=== PATIENT | male | born 1965 ===

== ENCOUNTER 2020-08-25 13:53 | Outpatient (REF) | payer OTHER, SELFPAY ==
[2020-08-25 15:58] LABS: Prostate Specific Antigen Scr 0.31 ng/mL (<0.05-4.0)
== END 2020-08-25 13:54 | disposition home or self-care (01) ==
LOC: HO.LAB 13:53
PROVIDERS: PCP Physician Assistant; Visit Provider Physician Assistant
DX: Z12.5 Encounter for screening for malignant neoplasm of prostate (principal)
CPT/HCPCS: 36415; 84153

== ENCOUNTER → 2020-09-04 14:14 | Outpatient (BNVA) | payer OTHER, SELFPAY | PROVIDERS: PCP Physician Assistant; Visit Provider Urology | DX: R31.9 Hematuria, unspecified (principal) | CPT/HCPCS: 81002; 99202 ==

== ENCOUNTER 2020-09-09 11:46 | Outpatient (REF) | payer OTHER, SELFPAY ==
[2020-09-09 12:30] LABS: Urine Cytology See Pathology rpt
[2020-09-09 13:08] LABS: Blood Urea Nitrogen 17 mg/dL (9-16); Estimated Glomerular Filt Rate > 60
== END 2020-09-09 11:47 | disposition home or self-care (01) ==
LOC: HO.LAB 11:46
PROVIDERS: PCP Urology; Visit Provider Physician Assistant
DX: R31.9 Hematuria, unspecified (principal); N26.1 Atrophy of kidney (terminal)
CPT/HCPCS: 36415; 82565; 84520; 88112

== ENCOUNTER 2020-09-17 09:50 | Outpatient (REF) | payer OTHER, SELFPAY ==
--- NOTE | ~2020-09-17 | CT_ITS ---
EXAMINATION: CT ABDOMEN AND PELVIS WITHOUT AND WITH CONTRAST CLINICAL INFORMATION: Gross hematuria COMPARISON: Ultrasound abdomen 04/19/2018 TECHNIQUE: Noncontrast CT of the abdomen and pelvis is performed followed by split bolus contrast-enhanced images using 85 mL Omnipaque 350 contrast.? Postcontrast imaging is performed during the combined nephrogram and excretion phase. Sagittal and coronal reformatted images were obtained on the technologist's workstation for both the precontrast and postcontrast phases. This CT examination was performed using dose optimization techniques as appropriate, variously including the following: *Automated exposure control *Adjustment of mA and/or kV according to patient size (this includes techniques or standardized protocols for targeted exams where dose is matched to indication/reason for exam; i.e. extremities or head) *Use of iterative reconstruction technique DLP: 571 mGy-cm FINDINGS: LUNG BASES: The lung bases are clear. The heart size is normal. LIVER, GALLBLADDER, AND BILIARY TREE: The liver is normal in size, shape, and attenuation. No focal hepatic lesion or biliary ductal dilatation is present. The gallbladder is unremarkable with no evidence of radiopaque gallstones, gallbladder wall thickening, or obvious pericholecystic inflammatory changes. PANCREAS: Unremarkable. SPLEEN: Unremarkable. ADRENAL GLANDS: Unremarkable. KIDNEYS AND URETERS: There is a 3 mm nonobstructive radiopaque calculi, upper pole calyx, left kidney. Postcontrast both kidneys nephrograms are symmetrical in size, shape and position. There is normal cortical thickness. No enhancing renal mass, cyst, or mass effect seen. There is good opacification of bilateral kidney pelvises and ureters without any intraluminal filling defect or narrowing. The left kidney measures 9.5 cm in length and right kidney measures 9.1 cm in length. There is no perinephric stranding. BLADDER: The bladder is partially opacified with excreted contrast and appears unremarkable. GASTROINTESTINAL TRACT: There is scattered stool and gas seen throughout the colon without any significant distention. The small bowel loops are normal caliber. The appendix is normal caliber. ABDOMINAL WALL: No significant hernia is appreciated. LYMPH NODES: Normal. VASCULAR: Unremarkable. PELVIC VISCERA: Unremarkable. OSSEUS STRUCTURES: No lytic or sclerotic process. CT/CT urogram IMPRESSION: 1. Nonobstructive radiopaque calculi, upper pole left kidney. No caliectasis or hydronephrosis seen. 2. Moderate constipation. No obstruction seen.
[2020-09-17] MEDS: iohexoL 350 MG/ML 100 ML INFUS..BTL 85 ML IV (10:32)
== END 2020-09-17 09:51 | disposition home or self-care (01) ==
LOC: HO.CT 09:50
PROVIDERS: PCP Physician Assistant; Visit Provider Urology
DX: R31.0 Gross hematuria (principal); R31.9 Hematuria, unspecified
CPT/HCPCS: 74178; Q9967

== ENCOUNTER → 2020-10-01 09:27 | Outpatient (BNVA) | payer OTHER, SELFPAY | PROVIDERS: PCP Physician Assistant; Visit Provider Urology ==

== ENCOUNTER 2021-03-19 12:48 | Outpatient (REF) | payer OTHER, SELFPAY ==
[2021-03-19 14:08] LABS: Hematocrit 41.6 % (42-52); Hemoglobin 13.2 g/dl (14.0-18.0); Mean Corpuscular HGB Conc 31.7 g/dl (31.0-36.0); Mean Corpuscular Hemoglobin 28.6 pg (27.0-33.0); Mean Corpuscular Volume 90.2 fL (80-98); Mean Platelet Volume 8.8 fL (9.4-12.4); Platelet Count 244 X10*3/uL (160-400); Red Blood Count 4.61 X10*6/uL (4.60-5.80); Red Cell Distribution Width 13.4 % (11.0-16.0); White Blood Count 7.5 X10*3/uL (4.8-10.8)
[2021-03-19 14:24] LABS: Alanine Aminotransferase 8 U/L (0-40); Albumin Level 4.1 g/dL (3.5-5.0); Alkaline Phosphatase 67 U/L (39-117); Anion Gap 10 (12-20); Aspartate Amino Transferase 14 U/L (5-37); Bilirubin Total 0.2 mg/dL (0.0-1.0); Blood Urea Nitrogen 14 mg/dL (9-16); Calcium 9.2 mg/dL (8.4-10.2); Carbon Dioxide 32 mmol/L (22-29); Chloride 105 mmol/L (96-108); Estimated Glomerular Filt Rate > 60; Glucose Random 70 mg/dL (60-115); Potassium 4.4 mmol/L (3.3-5.1); Sodium 143 mmol/L (135-145); Total Protein 6.9 g/dL (6.5-8.0)
== END 2021-03-19 12:49 | disposition home or self-care (01) ==
LOC: HO.LAB 12:48
PROVIDERS: PCP Physician Assistant; Referring Provider Physician Assistant; Visit Provider Nurse Practitioner Family
DX: K21.9 Gastro-esophageal reflux disease without esophagitis (principal); K59.00 Constipation, unspecified
CPT/HCPCS: 36415; 80053; 85027; 99202

== ENCOUNTER 2021-03-22 13:43 | Outpatient (REF) | payer OTHER, SELFPAY | END 2021-03-22 13:44 | disposition home or self-care (01) | LOC: HO.LNP 13:43 | PROVIDERS: Visit Provider Nurse Practitioner Family | DX: K21.9 Gastro-esophageal reflux disease without esophagitis (principal) | CPT/HCPCS: 87338 ==

== ENCOUNTER 2021-08-04 11:16 | Outpatient (REF) | payer OTHER, SELFPAY ==
--- NOTE | ~2021-08-04 | XR_ITS ---
EXAMINATION: XR SHOULDER, RIGHT CLINICAL INFORMATION: Pain COMPARISON: None TECHNIQUE: AP external rotation, Grashey, scapular Y, and axillary views of the right shoulder. FINDINGS: Laterally downsloping acromion with a broad-based enthesophyte predisposing to subacromial impingement. Mild degenerative changes of the glenohumeral joint. Mild hypertrophic spurring about the greater tuberosity. No soft tissue calcifications. No acute deformity. No focal bony lesion otherwise. XR/XR shoulder RT min 2V IMPRESSION: Degenerative changes as above predisposing to subacromial impingement.
--- NOTE | ~2021-08-04 | XR_ITS ---
EXAMINATION: XR CERVICAL SPINE CLINICAL INFORMATION: Pain, numbness and tingling COMPARISON: Previous cervical spine x-ray April 2020 TECHNIQUE: 5 views of the cervical spine were obtained. FINDINGS: Bone alignment is normal. No fracture or dislocation is seen. There is degenerative spondylosis and degenerative disc disease at C5-C6. There is right-sided neuroforaminal narrowing at C3-C4 and C5-C6. There is left-sided neuroforaminal narrowing at C6-C7. Prevertebral soft tissues are normal. There is soft tissue calcification or ossification posterior to the C5 spinous process suggestive soft tissue trauma. XR/XR cervical spine 4V IMPRESSION: Degenerative changes.
[2021-08-04 12:10] LABS: Estimated Average Glucose 105 mg/dL; Hemoglobin A1c % 5.3 %
[2021-08-04 12:30] LABS: Alanine Aminotransferase 14 U/L (0-40); Albumin Level 4.1 g/dL (3.5-5.0); Alkaline Phosphatase 67 U/L (39-117); Anion Gap 12 (12-20); Aspartate Amino Transferase 18 U/L (5-37); Bilirubin Total 0.4 mg/dL (0.0-1.0); Blood Urea Nitrogen 14 mg/dL (9-16); Calcium 9.6 mg/dL (8.4-10.2); Carbon Dioxide 29 mmol/L (22-29); Chloride 106 mmol/L (96-108); Cholesterol 176 mg/dL; Estimated Glomerular Filt Rate > 60; Glucose Fasting 92 mg/dL (60-99); HDL Cholesterol 37 mg/dL; LDL Cholesterol Calculated 100 mg/dl; Potassium 4.5 mmol/L (3.3-5.1); Sodium 142 mmol/L (135-145); Total Protein 7.2 g/dL (6.5-8.0); Triglycerides 195 mg/dL
[2021-08-04 12:53] LABS: Prostate Specific Antigen Scr 0.51 ng/mL (<0.05-4.0)
== END 2021-08-04 11:17 | disposition home or self-care (01) ==
LOC: HO.XRAY 11:16
PROVIDERS: PCP Physician Assistant; Visit Provider Physician Assistant
DX: M25.511 Pain in right shoulder (principal); M48.02 Spinal stenosis, cervical region; M47.22 Other spondylosis with radiculopathy, cervical region; M75.41 Impingement syndrome of right shoulder; Z13.1 Encounter for screening for diabetes mellitus; Z13.220 Encounter for screening for lipoid disorders; Z12.5 Encounter for screening for malignant neoplasm of prostate
CPT/HCPCS: 36415; 72050; 73030; 80053; 80061; 83036; 84153

== ENCOUNTER 2021-10-20 14:20 | Outpatient (REF) | payer OTHER, SELFPAY ==
--- NOTE | ~2021-10-20 | XR_ITS ---
EXAMINATION: XR lumbar spine 2-3V CLINICAL INFORMATION: Reason for Exam M54.50 - Low back pain, unspecified COMPARISON: Lumbar spine radiographs 06/04/2019 TECHNIQUE: 3 views of the lumbar spine XR/XR lumbar spine 2-3V FINDINGS/IMPRESSION: 5 nonrib-bearing lumbar-type vertebral bodies. Vertebral body heights are maintained. Grade 1 anterolisthesis of L3 on L4. Mild multilevel degenerative disc disease worst at L3-L4 where there is loss of disc space height and endplate sclerosis. Paravertebral soft tissues are unremarkable.
== END 2021-10-20 14:21 | disposition home or self-care (01) ==
LOC: HO.XRAY 14:20
PROVIDERS: PCP Physician Assistant; Visit Provider Nurse Practitioner Family
DX: M54.50 Low back pain, unspecified (principal)
CPT/HCPCS: 72100

== ENCOUNTER 2022-03-03 08:02 | Outpatient (REF) | payer OTHER, SELFPAY ==
[2022-03-03 09:25] LABS: Alanine Aminotransferase 11 U/L (0-40); Albumin Level 4.1 g/dL (3.5-5.0); Alkaline Phosphatase 64 U/L (39-117); Anion Gap 11 (12-20); Aspartate Amino Transferase 15 U/L (5-37); Bilirubin Total 0.4 mg/dL (0.0-1.0); Blood Urea Nitrogen 11 mg/dL (9-16); Calcium 8.9 mg/dL (8.4-10.2); Carbon Dioxide 29 mmol/L (22-29); Chloride 106 mmol/L (96-108); Cholesterol 159 mg/dL; Estimated Glomerular Filt Rate > 60; Glucose Fasting 93 mg/dL (60-99); HDL Cholesterol 40 mg/dL; LDL Cholesterol Calculated 100 mg/dl; Potassium 3.7 mmol/L (3.3-5.1); Sodium 142 mmol/L (135-145); Total Protein 6.9 g/dL (6.5-8.0); Triglycerides 97 mg/dL
== END 2022-03-03 08:03 | disposition home or self-care (01) ==
LOC: HO.LAB 08:02
PROVIDERS: PCP Physician Assistant; Visit Provider Internal Medicine
DX: R00.2 Palpitations (principal); I10 Essential (primary) hypertension
CPT/HCPCS: 36415; 80053; 80061; 84443

== ENCOUNTER → 2022-03-16 12:51 | Outpatient (REF) | payer OTHER, SELFPAY ==
--- NOTE | 2022-03-16 12:55 | ECG_ITS ---
Hook-up date: 2022-03-16 12:06:00 Duration: 23:39:00 Test Indications: PALPITATIONS Medications: 76636 QRS complexes * Ventricular ectopics which represent % of total QRS comp. 2 Supraventricular ectopics which represent <1 % of total QRS comp. * Paced QRS complexs which represent % of total QRS comp. VENTRICULAR ECTOPY * Isolated * Bigeminal Cycles * Couplets * Runs * Beats in Runs * Beats LONGEST at * BPM at :: -- * Beats FASTEST at * BPM at :: -- SUPRAVENTRICULAR ECTOPY 2 Isolated 0 Couplets 0 Runs 0 Beats in Runs * Beats LONGEST at * BPM at :: -- * Beats FASTEST at * BPM at :: -- HEART RATES 43 MIN at 05:16:39 2022-03-17 66 AVG 114 MAX at 11:41:14 2022-03-17 LONGEST RR 1.4240 secs at 05:16:35 2022-03-17 S-T LEVELS Channel 1 - 128 mm at 12:06:00 2022-03-16 - 128 mm at 12:06:00 2022-03-16 Channel 2 - 128 mm at 12:06:00 2022-03-16 - 128 mm at 12:06:00 2022-03-16 Channel 3 - 128 mm at 03:12:51 -- - 128 mm at 03:12:51 Underlying rhythm is sinus; Average ventricular rate 66/min; range 43-114/min; No significant ectopy, tachy or don arrhythmias; Patient did not report any symptoms in the diary Referred By: Augusta Mahajna Overread By: ADELINA FERRARA
== END ==
LOC: HO.CARD 12:51
PROVIDERS: PCP Physician Assistant; Visit Provider Internal Medicine
DX: R00.2 Palpitations (principal)
CPT/HCPCS: 93225; 93226

== ENCOUNTER 2022-08-10 09:35 | Outpatient (REF) | payer OTHER, SELFPAY ==
[2022-08-10 10:12] LABS: Hematocrit 41.4 % (42.0-52.0); Hemoglobin 13.3 g/dl (14.0-18.0); Mean Corpuscular HGB Conc 32.1 g/dl (31.0-36.0); Mean Corpuscular Hemoglobin 28.8 pg (27.0-33.0); Mean Corpuscular Volume 89.6 fL (80.0-98.0); Mean Platelet Volume 8.9 fL (9.4-12.4); Platelet Count 224 X10*3/uL (160-400); Red Blood Count 4.62 X10*6/uL (4.60-5.80); Red Cell Distribution Width 13.1 % (11.0-16.0); White Blood Count 8.1 X10*3/uL (4.8-10.8)
[2022-08-10 10:58] LABS: Alanine Aminotransferase 9 U/L (0-40); Albumin Level 4.2 g/dL (3.5-5.0); Alkaline Phosphatase 61 U/L (39-117); Anion Gap 11 (12-20); Aspartate Amino Transferase 14 U/L (5-37); Bilirubin Total 0.4 mg/dL (0.0-1.0); Blood Urea Nitrogen 17 mg/dL (9-16); Calcium 9.3 mg/dL (8.4-10.2); Carbon Dioxide 31 mmol/L (22-29); Chloride 106 mmol/L (96-108); Cholesterol 158 mg/dL; Estimated Glomerular Filt Rate > 60; Glucose Fasting 97 mg/dL (60-99); HDL Cholesterol 45 mg/dL; LDL Cholesterol Calculated 94 mg/dl; Sodium 144 mmol/L (135-145); TSH reflex Free T4 0.54 uIU/mL (0.32-4.0); Total Protein 6.9 g/dL (6.5-8.0); Triglycerides 95 mg/dL
[2022-08-10 11:29] LABS: Creatinine Urine 113.11 mg/dL; Microalbum/Creatinine Ratio Ur 9.7 ug/mg cr
== END 2022-08-10 09:36 | disposition home or self-care (01) ==
LOC: HO.LAB 09:35
PROVIDERS: PCP Physician Assistant; Visit Provider Physician Assistant
DX: I10 Essential (primary) hypertension (principal)
CPT/HCPCS: 36415; 80053; 80061; 82043; 84443; 85027

== ENCOUNTER 2023-04-06 14:32 | Outpatient (AMB) | payer OTHER, SELFPAY ==
--- NOTE | 2023-04-06 14:52 | MHC.PC.OV ---
Vital Signs 04/06/23 14:54 Height 5 ft 3 in Weight 125 lb 2 oz BMI 22.2 BP 130/68 Blood Pressure Location Lt brachial Position Sitting Pulse 62 Pulse Source Pulse Oximeter Pulse Oximetry (%) 96 Oxygen Delivery Method Room Air Intake Visit Reasons: left leg swelling Intake Note: Patient is here today for Bilateral swelling of leg, state left leg is worse. Requesting for MRI of the leg and back due to history of sciatica. Mri Ct Tech Required: No Direct Care Worker: Not Required per policy Accompanied by: Self / Same As Patient Allergies sertraline Adverse Reaction (Intermediate, Verified 04/06/23 15:50) inadequate response Medication List - Last Reconciled 04/06/23 by Josh Ayoub MD blood pressure monitor (Blood Pressure Kit) As directed buspirone 5 mg PO BID 90 days diclofenac sodium 1% (Arthritis Pain (diclofenac)) 2 grams topical QID PRN gabapentin 300 mg PO TID 90 days lisinopril-hydrochlorothiazide 20-12.5 mg 1 tab PO DAILY methadone 100 mg PO DAILY methocarbamol 1,000 mg (2 x 500 mg) PO Q8H Tobacco use date assessed: 04/06/23 Dental Screening Dental Screen Date: 04/06/23 Did you have a dental visit in the last 12 months?: Yes Did you have a dental problem in the last 6 months where you did not have access to dental care?: No Was dental information given to patient?: Patient has dentist HPI left leg swelling HPI Details 57-year-old male presents to the office for an urgent visit. I am covering for his provider. Patient reports he has been having pain in the left hip for the past few months. He was seen at by [facility] and had an MRI done. They are now requesting an MRI with contrast. Patient is here requesting an MRI with contrast. [facility] Medical History Anxiety Epidermal cyst of neck Primary insomnia Uncomplicated opioid dependence Surgical History History of removal of cyst Family History Father Prostate cancer Stroke Mother Alzheimers disease Mental health disorder Sister Dementia in Alzheimer's disease Mental health disorder Sister Breast cancer Social History Housing: Apartment Alcohol intake: current Alcohol intake frequency: holidays/special occasions only Patient Tobacco Use Status: Current everyday Tobacco user Tobacco use type: Cigarette Cigarette Packs Per Day: 0.5 Cigarettes Per Day: 10 e-Cigarette/Vaping Use: Never Used Second Hand Smoke Exposure: Yes Substance Use Type: Marijuana service: No Current occupational status: unemployed Cognitive needs: No Hearing needs: No Vision needs: Yes Questionnaire Thrive Questionnaire Date Thrive assessed: 02/17/23 ARACELIS-7 AMB Questionnaire ARACELIS-7 Date ARACELIS - 7 assessed: 02/17/23 Source: Developed by Drs. Inocencio Victor, Itzel Burden, Say Sung and colleagues, with an educational zhane from [employer]. Physical exam (Primary Care) Vital Signs: Last Vital Signs Pulse 62 04/06/23 14:54 BP 130/68 04/06/23 14:54 Pulse Ox 96 04/06/23 14:54 Oxygen Delivery Method Room Air 04/06/23 14:54 BMI result Body Mass Index 22.2 Tobacco/Smoking Status: Tobacco use Status Tobacco use date assessed 04/06/23 04/06/23 14:54 Patient Tobacco Use Status Current everyday Tobacco 04/06/23 15:02 Tobacco use type Cigarette 04/06/23 14:54 e-Cigarette/Vaping Use Never Used 04/06/23 14:54 Thrive Assessment: Date of Thrive Assessment Date Thrive assessed 02/17/23 04/06/23 14:54 Back/Spine/Pelvis Other: Back: No spinal tenderness. Straight leg raising on the right side elicits minimal discomfort in the lower back. Assessment and Plan Assessment & Plan (1) Sciatica: Code(s): M54.30 - Sciatica, unspecified side Plan: I am not understanding the reason for a repeat MRI. The previous MRI was reviewed which showed degenerative joint disease. I have asked for the office note from [facility] and will then review the record again. Coding Level of Care Code Est Pt Level 3 (34552) Diagnoses Sciatica M54.30
[2023-04-06 14:54] VITALS: BP 130/68; PULSE 62; O2SAT 96; BMI 22.2
== END 2023-04-06 16:10 | disposition home or self-care (01) ==
PROVIDERS: PCP Physician Assistant; Visit Provider Internal Medicine
DX: M54.30 Sciatica, unspecified side (principal)
CPT/HCPCS: 99213

== ENCOUNTER 2023-08-02 13:08 | Outpatient (AMB) | payer OTHER, SELFPAY ==
--- NOTE | 2023-08-02 13:15 | MHC.PC.OV ---
Vital Signs 08/02/23 13:16 Height 5 ft 3 in Weight 124 lb 4 oz BMI 22.0 BP 118/68 Blood Pressure Location Lt brachial Position Sitting Respiration 17 Pulse 70 Pulse Source Pulse Oximeter Pulse Oximetry (%) 97 Oxygen Delivery Method Room Air Intake Visit Reasons: PE Intake Note: Patient is here today for a physical. Battery Recharger Required: No Accompanied by: Self / Same As Patient Allergies sertraline Adverse Reaction (Intermediate, Verified 08/02/23 13:31) inadequate response Medication List - Last Reconciled 08/02/23 by Daniel Pulido PA-C blood pressure monitor (Blood Pressure Kit) As directed diclofenac sodium 1% (Arthritis Pain (diclofenac)) 2 grams topical QID PRN gabapentin 300 mg PO TID 90 days lisinopril-hydrochlorothiazide 20-12.5 mg 1 tab PO DAILY methadone 100 mg PO DAILY methocarbamol 1,000 mg (2 x 500 mg) PO Q8H Tobacco use date assessed: 04/06/23 Dental Screening Dental Screen Date: 08/02/23 Did you have a dental visit in the last 12 months?: Yes Did you have a dental problem in the last 6 months where you did not have access to dental care?: No Was dental information given to patient?: Patient has dentist HPI PE HPI Details Patient is a 57-year-old male here today for annual physical. ?has a past medical history significant for generalized anxiety disorder, hep C, opiate dependence,? chronic lumbar spine pain. ? .. Hypertension: Blood pressure acceptable today in office.. Continues on lisinopril 20 mg daily. Hydrochlorothiazide has been added to his blood pressure medication regime. Reports home blood pressures are stable. He otherwise denies any chest discomfort, headaches or vision issues. . Tobacco dependency: Continues to smoke half pack of cigarettes per day. Not interested in quitting at this time. .. opiate dependence: Continues on methadone through a local methadone clinic. currently on 100mg. He does report labs in from time to time depending his mental health. Lumbar disc disease: Continues with the use gabapentin and methocarbamol. Did see is it training specialist in the past to which he was getting therapy with 10s units. He reports his back pain is fine now and will consider pain management in the future. ? . ? Anxiety: He reports anxiety has been much better controlled since he has reduced his marijuana intake. .. Colorectal cancer screening: Has done Cologuard in 2022 which was negative repeat 3 years Vaccines: Up-to-date with COVID vaccine, pneumonia vaccine, tetanus vaccine, Considering his flu vaccine though declines today [facility] Medical History Primary insomnia Uncomplicated opioid dependence Anxiety Epidermal cyst of neck Surgical History History of removal of cyst Family History Father Prostate cancer Stroke Mother Alzheimers disease Mental health disorder Sister Dementia in Alzheimer's disease Mental health disorder Sister Breast cancer Social History (Updated 08/02/23 @ 13:39 by Daniel Pulido PA-C) Housing: Apartment Alcohol intake: current Alcohol intake frequency: holidays/special occasions only Patient Tobacco Use Status: Current everyday Tobacco user Tobacco use type: Cigarette Cigarette Packs Per Day: 0.5 Cigarettes Per Day: 10 e-Cigarette/Vaping Use: Never Used Second Hand Smoke Exposure: Yes Substance Use Type: Marijuana service: No Current occupational status: unemployed Cognitive needs: No Hearing needs: No Vision needs: Yes Questionnaire Thrive Questionnaire Date Thrive assessed: 02/17/23 ARACELIS-7 AMB Questionnaire ARACELIS-7 Date ARACELIS - 7 assessed: 02/17/23 Source: Developed by Drs. Inocencio Victor, Itzel Burden, Say Sung and colleagues, with an educational zhane from [employer]. Review of Systems Const Denies body aches, Denies chills, Denies excessive sweating, Denies fatigue, Denies fever(s) and Denies headache(s) Eyes Denies blurry vision ENT Denies dysphagia, Denies vertigo, Denies dizziness, Denies headache(s), Denies hearing loss and Denies tinnitus Card Denies chest pain, Denies chest pain with activity, Denies syncope, Denies irregular heart rhythm and Denies dyspnea Resp Denies chest congestion, Denies cough, Denies hemoptysis, Denies dyspnea and Denies wheezing GI Denies abdominal pain, Denies melena, Denies hematochezia, Denies coffee ground emesis, Denies dysphagia, Denies diarrhea, Denies nausea and Denies vomiting Denies difficulty urinating, Denies dysuria, Denies urinary frequency, Denies urinary hesitancy and Denies urinary urgency Musc Denies arthralgias, Denies limited range of motion, Denies muscle cramps and Denies muscle weakness Skin/Breast Denies rash and Denies skin ulcer Neuro Denies Abnormal speech present, Denies confusion, Denies vertigo, Denies dizziness, Denies syncope, Denies headache(s), Denies memory loss and Denies seizure-like activity Psych Denies anxiety, Denies confusion, Denies depression, Denies memory loss, Denies panic attacks and Denies paranoia Endo Denies excessive sweating, Denies fatigue, Denies flushing, Denies polydipsia and Denies polyuria Aller/Immun Denies wheezing Physical exam (Primary Care) Vital Signs: Last Vital Signs Pulse 70 08/02/23 13:16 Resp 17 08/02/23 13:16 BP 118/68 08/02/23 13:16 Pulse Ox 97 08/02/23 13:16 Oxygen Delivery Method Room Air 08/02/23 13:16 BMI result Body Mass Index 22.0 Tobacco/Smoking Status: Tobacco use Status Tobacco use date assessed 04/06/23 08/02/23 13:16 Patient Tobacco Use Status Current everyday Tobacco 08/02/23 13:16 Tobacco use type Cigarette 08/02/23 13:16 e-Cigarette/Vaping Use Never Used 08/02/23 13:16 Are you ready to quit: No Tobacco cessation counseling provided: Yes Items discussed: Nicotine replacement and QuitWorks Relapse Prevention: discussed the importance of a supportive environment, discussed negative mood or depression after quitting, weight gain after smoking is common and discussed dietary, exercise and/or lifestyle changes Number of minutes spent counselin CPT code: 94914 - 4-10 Minutes Thrive Assessment: Date of Thrive Assessment Date Thrive assessed 02/17/23 08/02/23 13:16 Const General: cooperative, comfortable, no acute distress, alert and awake; No confusion Orientation/consciousness: oriented to person, oriented to place, patient oriented x3 and No confusion HENMT Other: RIGHT EAR: CERUMEN IMPACTION- UNABLE TO REMOVE CERUMEN WITH LAVAGE Head: Yes normocephalic Ears: external ears normal and TM's normal bilaterally Face and sinus: No sinus tenderness Mouth: Normal oral and palatal mucosa present and tongue normal Teeth and gingiva: dentition normal and gingiva normal Throat: Yes posterior oropharynx normal, Yes tonsils normal and Yes uvula midline Eyes Conjunctivae: conjunctivae normal Sclerae: sclerae normal Pupils: Equal, round and reactive pupils present EOM: EOMs intact bilaterally Direct Ophthalmoscopy: No no photophobia Neck Neck: Yes no lymphadenopathy, No tender and Yes no JVD Thyroid: Thyroid normal Carotids: no bruits Chest Chest palpation & inspection: no tenderness Resp Effort & Inspection: normal respiratory effort, no audible wheezes, not labored and no stridor Auscultation: no crackles, no rales, no rhonchi and no wheezes Cardio Jugular venous distension: no JVD Rate: regular rate, not bradycardic and not tachycardic Rhythm: regular rhythm Bruits: no carotid bruits Peripheral pulses: Peripheral pulses 2+ throughout GI Inspection: Yes normal to inspection, No abdominal wall ecchymosis and No visible herniation Palpation (GI): Soft to palpation, nontender, no guarding, not rigid and No hepatosplenomegaly present Auscultation: normoactive bowel sounds General: Yes no CVA tenderness Back/Spine/Pelvis Back: no CVA tenderness and No back tenderness Cervical Spine: cervical ROM normal Thoracic/Lumbar Spine: thoracic and lumbar spine normal to inspection, straight leg raise negative bilaterally, No thoraco-lumbar ROM limited and No lumbar spinal tenderness Skin Lesions: no lesions Rashes: no rashes Wounds: no wounds Neuro General: oriented to person, oriented to place, patient oriented x3, CN's II-XI intact bilaterally and No confusion Cranial nerves: Yes Equal, round and reactive pupils present and Yes Normal accommodation reflex present Cognition (Neuro): normal cognition Speech: No Abnormal speech present Gait exam (Neuro): Normal gait present Motor exam (neuro): 5/5 motor strength present throughout Extrem Right upper extremity: full ROM; no cyanosis Left upper extremity: full ROM; no cyanosis Right lower extremity: no edema Left lower extremity: no edema Psych Appearance: grossly normal Mental Status: mental status grossly normal Affect: normal affect Attitude: cooperative Thought process: Normal thought process present Office Procedures Cerumen Removal Details: - LAVAGED WAS UNSUCCESSFUL- ENT REFERRAL PLACED From which ear canal was the cerumen removed: right Removal: irrigation and otoscope w/curette Notes: patient tolerated procedure well and no complications [id number] Irrigation/Lavage Assessment and Plan Assessment & Plan (1) Annual physical exam: Code(s): Z00.00 - Encounter for general adult medical examination without abnormal findings (2) Essential hypertension: Code(s): I10 - Essential (primary) hypertension Plan: Blood pressure acceptable today in office. Will continue current dose of lisinopril hydrochlorothiazide. He reports taking half tablet daily. Goal blood pressures to be below 140/90 (3) Opiate dependence: Code(s): F11.20 - Opioid dependence, uncomplicated Qualifiers: Substance use status: uncomplicated Qualified Code(s): F11.20 - Opioid dependence, uncomplicated Plan: He has been stable on current dose methadone. currently at 100 mg daily. He does report having relapses from time to time., He promises he has been staying away from all street drugs. Does still use a small amount of marijuana (4) ARACELIS (generalized anxiety disorder): Code(s): F41.1 - Generalized anxiety disorder Plan: Patient reports his anxiety has been much improved. Will supply him with a few tablets of clonazepam to use on a p.r.n. basis for his panic disorder (5) Tobacco dependence: Code(s): F17.200 - Nicotine dependence, unspecified, uncomplicated Plan: Patient understands he needs to quit smoking, declines my offers to start nicotine replacement therapy. He will try to wean down for is smoking on his own. (6) Lumbar disc disease: Code(s): M51.9 - Unspecified thoracic, thoracolumbar and lumbosacral intervertebral disc disorder Plan: As per HPI patient is lumbar spine pain is essentially resolved. Does use gabapentin and meloxicam to manage his pain. (7) Mild recurrent major depression: Code(s): F33.0 - Major depressive disorder, recurrent, mild Plan: Has been slightly depressed as of late, reports a dozen the family recently. He is not interested in starting SSRI therapy again. He does have counselor the methadone clinic he talks to. (8) Impacted cerumen of right ear: Code(s): H61.21 - Impacted cerumen, right ear Plan: Unsuccessful attempt on removing cerumen impaction for right ear. Advised on trying home Debrox solution. ENT referral placed Orders: Orders Microalbumin, Random (w Creat) Today I10 - Essential (primary) hypertension Prostate Specific Antigen Scr Today I10 - Essential (primary) hypertension, Z12.5 - Encounter for screening for malignant neoplasm of prostate Comprehensive [place]. Panel Fast Today I10 - Essential (primary) hypertension Referrals Ear/Nose/Throat Referral H61.21 - Impacted cerumen, right ear Medications: New clonazepam 1 mg PO DAILY 3 days PRN 3 tabs 0RF panic attack(s) I10 - Essential (primary) hypertension Refilled lisinopril-hydrochlorothiazide 20-12.5 mg 1 tab PO DAILY 90 tabs 3RF gabapentin 300 mg PO TID 90 days 270 caps 2RF M47.22 - Other spondylosis with radiculopathy, cervical region methocarbamol 1,000 mg (2 x 500 mg) PO Q8H 180 tabs 3RF Coding Level of Care Code Est Pt Prev Care 40-64y(30584) Diagnoses Annual physical exam Z00.00 Essential hypertension I10 Uncomplicated opioid dependence F11.20 Substance use status: uncomplicated ARACELIS (generalized anxiety disorder) F41.1 Tobacco dependence F17.200 Lumbar disc disease M51.9 Mild recurrent major depression F33.0 Impacted cerumen of right ear H61.21 CPT Codes Office Procedure - CPT: 42332-Dad Irrigation/Lavage ([id number]) Additional Codes Vital Signs *Quality* - CPT code: 44101 - 4-10 Minutes ([id number])
[2023-08-02 13:16] VITALS: BP 118/68; PULSE 70; RESP 17; O2SAT 97; BMI 22.0
== END 2023-08-02 14:18 | disposition home or self-care (01) ==
PROVIDERS: Visit Provider Physician Assistant
DX: Z00.00 Encounter for general adult medical examination without abnormal findings (principal); F11.20 Opioid dependence, uncomplicated; F33.0 Major depressive disorder, recurrent, mild; F17.210 Nicotine dependence, cigarettes, uncomplicated; H61.21 Impacted cerumen, right ear; I10 Essential (primary) hypertension; F41.1 Generalized anxiety disorder; M51.9 Unspecified thoracic, thoracolumbar and lumbosacral intervertebral disc disorder
CPT/HCPCS: 69210; 99396; 99406

== ENCOUNTER 2023-10-19 08:48 | Outpatient (REF) | payer OTHER, SELFPAY ==
[2023-10-19 10:41] LABS: Alanine Aminotransferase 8 U/L (0-40); Alkaline Phosphatase 47 U/L (39-117); Anion Gap 13 (12-20); Aspartate Amino Transferase 13 U/L (5-37); Bilirubin Total 0.5 mg/dL (0.0-1.0); Blood Urea Nitrogen 14 mg/dL (9-16); Calcium 9.5 mg/dL (8.4-10.2); Carbon Dioxide 30 mmol/L (22-29); Chloride 101 mmol/L (96-108); Estimated Glomerular Filt Rate > 60; Glucose Fasting 91 mg/dL (60-99); Potassium 3.9 mmol/L (3.3-5.1); Sodium 140 mmol/L (135-145); Total Protein 7.1 g/dL (6.5-8.0)
[2023-10-19 10:56] LABS: Prostate Specific Antigen Scr 0.32 ng/mL (<0.05-4.0)
== END 2023-10-19 08:49 | disposition home or self-care (01) ==
LOC: HO.LAB 08:48
PROVIDERS: PCP Physician Assistant; Visit Provider Physician Assistant
DX: Z12.5 Encounter for screening for malignant neoplasm of prostate (principal); I10 Essential (primary) hypertension
CPT/HCPCS: 36415; 80053; 84153

== ENCOUNTER 2023-11-09 14:47 | Outpatient (AMB) | payer OTHER, SELFPAY ==
[2023-11-09 14:52] VITALS: BP 118/66; PULSE 84; O2SAT 97; BMI 22.0
--- NOTE | 2023-11-09 14:52 | MHC.PC.OV ---
Vital Signs 11/09/23 14:52 Height 5 ft 3 in Weight 124 lb BMI 22.0 BP 118/66 Blood Pressure Location Lt brachial Position Sitting Pulse 84 Pulse Source Pulse Oximeter Pulse Oximetry (%) 97 Oxygen Delivery Method Room Air Intake Visit Reasons: Ongoing back pain Intake Note: Pt is here for ongoing sciatica pain for the past weeks. Pt take Gabapantin and does not seems to work. Plastics Technician Required: No Accompanied by: Self / Same As Patient Allergies sertraline Adverse Reaction (Intermediate, Verified 11/09/23 15:29) inadequate response Medication List - Last Reconciled 11/09/23 by Daniel Pulido PA-C amlodipine 5 mg PO DAILY 30 days blood pressure monitor (Blood Pressure Kit) As directed clonazepam 1 mg PO DAILY PRN 3 days diclofenac sodium 1% (Arthritis Pain (diclofenac)) 2 grams topical QID PRN gabapentin 300 mg PO TID 90 days methadone 100 mg PO DAILY methocarbamol 1,000 mg (2 x 500 mg) PO Q8H ondansetron HCl 8 mg PO Q12H PRN 5 days Tobacco use date assessed: 11/09/23 Dental Screening Dental Screen Date: 11/09/23 Did you have a dental visit in the last 12 months?: Yes Did you have a dental problem in the last 6 months where you did not have access to dental care?: No Was dental information given to patient?: Patient has dentist HPI Ongoing back pain HPI Details Patient is a 58-year-old male here today a problem visit. Has chronic lumbar spine pain and has been having sciatica over the last several weeks. Has been on gabapentin though reports it does not been working. Has seen back specialist in the past and received injection has done physical therapy which was helpful in the past. He does take gabapentin 600 b.i.d. along with methocarbamol which has been helpful as well. Of note did get an MRI last year of his lumbar spine which did show some bone marrow edema. He was to get MRI of lumbar spine with contrast though did not follow-up. He reports his right-sided sciatica has returned over the last several weeks and has not been able to go away. He is interested in being evaluated by [place] [facility] for pain reduction modality. .. Hypertension: Blood pressure today in office acceptable. He reports taking 10 mg of amlodipine which has been more helpful to control his blood pressure. [facility] Medical History Primary insomnia Uncomplicated opioid dependence Anxiety Epidermal cyst of neck Surgical History History of removal of cyst Family History Father Prostate cancer Stroke Mother Alzheimers disease Mental health disorder Sister Dementia in Alzheimer's disease Mental health disorder Sister Breast cancer Social History Housing: Apartment Alcohol intake: current Alcohol intake frequency: holidays/special occasions only Patient Tobacco Use Status: Current everyday Tobacco user Tobacco use type: Cigarette Cigarette Packs Per Day: 0.5 Cigarettes Per Day: 10 e-Cigarette/Vaping Use: Never Used Second Hand Smoke Exposure: Yes Substance Use Type: Marijuana service: No Current occupational status: unemployed Cognitive needs: No Hearing needs: No Vision needs: Yes Questionnaire PHQ-9 Over the last 2 weeks, how often have you been bothered by any of the following problems? 1. Little interest or pleasure in doing things: not at all 2. Feeling down, depressed, or hopeless: not at all 3. Trouble falling or staying asleep, or sleeping too much: not at all 4. Feeling tired or having little energy: not at all 5. Poor appetite or overeating: not at all 6. Feeling bad about yourself - or that you are a failure or have let yourself or your family down: not at all 7. Trouble concentrating on things, such as reading the newspaper or watching television: not at all 8. Moving or speaking so slowly that other people could have noticed. Or the opposite - being so fidgety or restless that you have been moving around a lot more than usual: not at all 9. Thoughts that you would be better off or of hurting yourself in some way: not at all Total score: 0 Depression Screening Interpretation: Negative Depression Screening Done: Yes 95105 - PHQ-9 Billing: Yes Source: Developed by Drs. Inocencio Victor, Itzel Burden, Say Sung and colleagues, with an educational zhane from [email or web address]. Thrive Questionnaire Date Thrive assessed: 11/09/23 I am a: Patient What is your living situation today?: I have a steady place to live Within the past 12 months, did the food you bought not last and you didn't have the money to get more?: Never true Within the past 12 months, did you worry whether your food would run out before you got money to buy more?: Never true Do you have trouble paying for medicines?: No Do you have trouble getting transportation to medical appointments?: No Do you have trouble paying your heating and electricity bill?: No Do you have trouble taking care of your child, family member or friend?: No Do you have trouble with day-to-day activities such as bathing, preparing meals, shopping, managing finances, etc.?: No Are you currently unemployed and looking for a job?: No Are you interested in more education?: No Please select the resources that you would like help with: None Currently or been in a relationship where the following occur: no concerns reported THRIVE Score: 0 AUDIT C Alcohol Use Questionnaire (AUDIT-C) 1. How often do you have a drink containing alcohol?: Monthly or less 2. How many drinks containing alcohol do you have on a typical day when you are drinking?: 1 or 2 Total Score: 1 ARACELIS-7 AMB Questionnaire ARACELIS-7 Date ARACELIS - 7 assessed: 11/09/23 Feeling nervous, anxious, or on edge: 0 = Not at all Not being able to stop or control worryin = Not at all Worrying too much about different things: 0 = Not at all Trouble relaxin = Not at all Being so restless that it is hard to sit still: 0 = Not at all Becoming easily annoyed or irritable: 0 = Not at all Feeling afraid as if something awful might happen: 0 = Not at all Total ARACELIS-7 score (0-4 normal; 5-9 mild; 10-14 moderate; 15-21 severe): 0 Source: Developed by Drs. Inocencio Victor, Itzel Burden, Say Sung and colleagues, with an educational zhane from [email or web address]. ARACELIS-7 Assessment Billing ARACELIS-7 Assessment Tool: ARACELIS-7 Assessment 33988 Review of Systems Const Denies headache(s) Eyes Denies loss of vision ENT Denies vertigo, Denies dizziness, Denies headache(s) and Denies sore throat Card Denies chest pain, Denies leg edema and Denies lightheadedness Resp Denies cough, Denies hemoptysis and Denies wheezing GI Denies abdominal pain, Denies melena, Denies constipation, Denies diarrhea and Denies vomiting Denies dysuria, Denies urinary frequency and Denies urinary urgency Musc Reports back pain, Denies arthralgias, Denies joint swelling, Denies numbness and Denies tingling Neuro Denies Abnormal speech present, Denies behavioral changes, Denies vertigo, Denies dizziness, Denies headache(s), Denies loss of vision, Denies memory loss, Denies numbness and Denies tingling Psych Denies anxiety, Denies behavioral changes, Denies depression, Denies memory loss and Denies panic attacks [place]/Lymph Denies easy bleeding and Denies easy bruising Aller/Immun Denies wheezing Physical exam (Primary Care) Vital Signs: Last Vital Signs Pulse 84 11/09/23 14:52 BP 118/66 11/09/23 14:52 Pulse Ox 97 11/09/23 14:52 Oxygen Delivery Method Room Air 11/09/23 14:52 BMI result Body Mass Index 22.0 Tobacco/Smoking Status: Tobacco use Status Tobacco use date assessed 11/09/23 11/09/23 15:23 Patient Tobacco Use Status Current everyday Tobacco 11/09/23 14:52 Tobacco use type Cigarette 11/09/23 14:52 e-Cigarette/Vaping Use Never Used 11/09/23 14:52 PHQ-9: PHQ-9 Score PHQ-9: Total score 0 11/09/23 15:33 Depression Screening Interpretation: Negative Thrive Assessment: Date of Thrive Assessment Date Thrive assessed 11/09/23 11/09/23 15:23 Currently or been in a relationship where the following occur: no concerns reported Const General: healthy appearing, no acute distress, alert and awake Nutritional Appearance: well nourished Orientation/consciousness: oriented to person, oriented to place and oriented to time HENMT Ears: TM's normal bilaterally General nose exam: Normal nasal mucous membranes and turbinates present Eyes Conjunctivae: conjunctivae normal Sclerae: sclerae normal Pupils: Equal, round and reactive pupils present Neck Neck: Yes no lymphadenopathy and Yes no JVD Thyroid: Thyroid normal Carotids: no bruits Resp Effort & Inspection: normal respiratory effort and not tachypneic Auscultation: no crackles, no rales, no rhonchi and no wheezes Cardio Rate: regular rate Rhythm: regular rhythm Heart sounds: no murmurs and normal S1 and S2 GI Palpation (GI): Soft to palpation, nontender, no hepatomegaly and no splenomegaly Auscultation: normal bowel sounds Skin General skin exam: no rashes or lesions noted and dry skin Neuro General: oriented to person, oriented to place and oriented to time Cranial nerves: Yes Equal, round and reactive pupils present Speech: No Abnormal speech present Gait exam (Neuro): Normal gait present Motor exam (neuro): no tremor noted Extrem Right upper extremity: full ROM Left upper extremity: full ROM Right lower extremity: full ROM; no edema Left lower extremity: full ROM; no edema Psych Mental Status: mental status grossly normal Speech and movement: Normal speech and movement present Affect: normal affect Attitude: cooperative Thought process: Normal thought process present Assessment and Plan Assessment & Plan (1) Lumbar disc disease: Code(s): M51.9 - Unspecified thoracic, thoracolumbar and lumbosacral intervertebral disc disorder Plan: As per HPI patient is interested in further pain reduction modalities for his lumbar spine pain. Does have signs symptoms consistent with right-sided sciatica which will increase his gabapentin 800 mg b.i.d.. Will try prednisone taper for acute inflammation. He continues with methocarbamol (2) Sciatica: Code(s): M54.30 - Sciatica, unspecified side Qualifiers: Laterality: right Qualified Code(s): M54.31 - Sciatica, right side Plan: As above Orders: Referrals Pain Management Referral M51.9 - Unspecified thoracic, thoracolumbar and lumbosacral intervertebral disc disorder Medications: New amlodipine 10 mg PO DAILY 90 tabs 1RF M51.9 - Unspecified thoracic, thoracolumbar and lumbosacral intervertebral disc disorder gabapentin 800 mg PO BID 90 days 180 tabs 1RF M54.31 - Sciatica, right side prednisone take 3 tabs x 3 days , take 2 tabs x 3 days , take 1 tabs x 3 days. 10 mg PO DIRECTED 9 days 18 tabs 0RF M54.31 - Sciatica, right side Discontinued gabapentin Discontinued Reason: Doctor's Order 300 mg PO TID 90 days 270 caps 2RF M47.22 - Other spondylosis with radiculopathy, cervical region amlodipine Discontinued Reason: Doctor's Order 5 mg PO DAILY 30 days 30 tabs 1RF I10 - Essential (primary) hypertension Coding Level of Care Code Est Pt Level 4 (68992) Diagnoses Lumbar disc disease M51.9 Sciatica of right side M54.31 Laterality: right Additional Codes ARACELIS-7 Assessment Billing - ARACELIS-7 Assessment Tool: ARACELIS-7 Assessment 95920 ([id number])
== END 2023-11-09 15:44 | disposition home or self-care (01) ==
PROVIDERS: PCP Physician Assistant; Visit Provider Physician Assistant
DX: M51.9 Unspecified thoracic, thoracolumbar and lumbosacral intervertebral disc disorder (principal); M54.31 Sciatica, right side
CPT/HCPCS: 99214

== ENCOUNTER 2023-12-07 13:02 | Outpatient (AMB) | payer OTHER, SELFPAY ==
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
[2023-12-07 13:16] VITALS: BP 142/67; PULSE 79; O2SAT 96; BMI 22.1
== END 2023-12-07 14:00 | disposition home or self-care (01) ==
PROVIDERS: PCP Physician Assistant; Visit Provider Nurse Practitioner Family
DX: M51.36 Other intervertebral disc degeneration, lumbar region (principal); M48.061 Spinal stenosis, lumbar region without neurogenic claudication; M54.50 Low back pain, unspecified
CPT/HCPCS: 99204

== ENCOUNTER → 2023-12-07 13:02 | Outpatient (BNVA) | payer OTHER, SELFPAY | PROVIDERS: PCP Physician Assistant; Visit Provider Nurse Practitioner Family | DX: M51.36 Other intervertebral disc degeneration, lumbar region (principal); M48.061 Spinal stenosis, lumbar region without neurogenic claudication; M54.50 Low back pain, unspecified; Z79.899 Other long term (current) drug therapy | CPT/HCPCS: 99202 ==

== ENCOUNTER 2024-01-11 15:04 | Outpatient (REF) | payer OTHER, SELFPAY ==
--- NOTE | ~2024-01-11 | MR_ITS ---
EXAMINATION: MR LUMBAR SPINE WITHOUT AND WITH CONTRAST CLINICAL INFORMATION: Lumbar disc degeneration, evaluate right L3-L4 facet edema COMPARISON: MRI lumbar spine on 03/08/2023 TECHNIQUE: MRI of the lumbar spine was obtained using routine sequences with and without contrast. Intravenous contrast: Gadavist6 mL FINDINGS: The visualized lumbar vertebrae are intact. Evaluation of the intervertebral discs show: T12/L1: Intervertebral disc height is normal, with normal T2 signal. No focal disc herniation is seen. Bilateral T12/L1 neuroforamina are patent. Bilateral apophyseal joints are intact with normal alignment. L-1/L-2: Intervertebral disc height is normal, with normal T2 signal. No focal disc herniation is seen. Bilateral L1-L2 neuroforamina are patent. Bilateral apophyseal joints are intact with normal alignment. L2/L3: Intervertebral disc height is normal, with normal T2 signal. No focal disc herniation is seen. Bilateral L2-L3 neuroforamina are patent. Bilateral apophyseal joints are intact with normal alignment. L3/L4: There is anterior L3 on L4 displacement by 0.4 cm with exposure of intervertebral disc. No evidence of pars interarticulares bony defects. Intervertebral disc height is moderately decreased, with moderate loss of T2 signal. Mild posterior and bilateral foraminal disc protrusion is seen. Bilateral L3-L4 neuroforamina are markedly stenosed. There is severe spinal stenosis due to impingement by hypertrophic ligamentum flavum. Bilateral apophyseal joints are intact with normal alignment. Bilateral apophyseal joints show loss of joint space, sclerosis, facet hypertrophy and osteophytosis. There is interval resolution of the right L3-L4 articular facet bone marrow edema. No evidence of enhancement is seen in bilateral L3-L4 articular apophyses. L4/L5: Intervertebral disc height is mildly decreased, with mild loss of T2 signal. Mild posterior and bilateral foraminal disc protrusion is seen. Bilateral L4-L5 neuroforamina are markedly stenosed. There is mild spinal stenosis due to impingement by hypertrophic ligamentum flavum. Bilateral apophyseal joints are intact with normal alignment. L5/S1: Intervertebral disc height is markedly decreased, with marked loss of T2 signal. Mild posterior and bilateral foraminal disc protrusion is seen. Bilateral L5-S1 neuroforamina are markedly stenosed. Bandlike T1 and T2 hyperintensity with diffuse enhancement are seen at inferior L5 and superior S1 vertebral endplates. Bilateral apophyseal joints are intact with normal alignment. Conus medullaris is seen normally at L1 level. Post contrast images show no abnormal enhancing intra spinal canalicular enhancing soft tissue mass lesion. MR/MR lumbar spine wo/w con IMPRESSION: 1. Interval resolution of the right L3-L4 articular facet bone marrow edema. No evidence of enhancing bone lesion or apophyseal joint septic arthritis. 2. Unchanged Severe L3-L4 spinal stenosis due to combination of grade 1 L3-L4 anterolisthesis and impingement by hypertrophic ligamentum flavum. No evidence of spondylolysis. 3. Unchanged Mild L4-L5 spinal stenosis due to impingement by hypertrophic ligamentum flavum. 4. Unchanged Marked bilateral L3-L4, L4-L5 and L5-S1 neural foraminal stenosis due to disc protrusion. 5. Unchanged Marked L5-S1 degenerative disc disease and Modic type I degenerative vertebral endplate changes.
[2024-01-11] MEDS: gadobutroL 7.5 ML VIAL IVPUSH (17:03)
== END 2024-01-11 15:05 | disposition home or self-care (01) ==
LOC: HO.MRI 15:04
PROVIDERS: PCP Physician Assistant; Visit Provider Nurse Practitioner Family
DX: M51.36 Other intervertebral disc degeneration, lumbar region (principal); M48.061 Spinal stenosis, lumbar region without neurogenic claudication
CPT/HCPCS: 72158; A9585

== ENCOUNTER 2024-01-31 13:54 | Outpatient (AMB) | payer OTHER, SELFPAY ==
[2024-01-31 13:55] VITALS: BP 138/62; PULSE 70; O2SAT 96; BMI 22.1
--- NOTE | 2024-01-31 13:55 | A.OFFPC_ITS ---
Vital Signs 01/31/24 13:55 Height 5 ft 3 in Weight 124 lb 8 oz BMI 22.1 BP 138/62 Blood Pressure Location Lt brachial Position Sitting Pulse 70 Pulse Source Pulse Oximeter Pulse Oximetry (%) 96 Oxygen Delivery Method Room Air Intake Visit Reasons: 6 month f/u Admissions Manager Rn Required: No Accompanied by: Self / Same As Patient Allergies sertraline Adverse Reaction (Intermediate, Verified 01/31/24 14:01) inadequate response Medication List - Last Reconciled 01/31/24 by Daniel Pulido PA-C amlodipine 10 mg PO DAILY amlodipine 10 mg PO DAILY blood pressure monitor (Blood Pressure Kit) As directed gabapentin 800 mg PO BID 90 days gabapentin 800 mg PO BID 90 days methadone 100 mg PO DAILY methocarbamol 1,000 mg (2 x 500 mg) PO Q8H Tobacco use date assessed: 11/09/23 Dental Screening Dental Screen Date: 11/09/23 HPI 6 month f/u HPI Details Patient is a 58-year-old male here today for a follow-up visit ?has a past medical history significant for generalized anxiety disorder, hep C, opiate dependence,? chronic lumbar spine pain. ? .. Hypertension: Blood pressure acceptable today in office.. Continues on lisinopril 20 mg daily. Hydrochlorothiazide has been added to his blood pressure medication regime. Reports home blood pressures are stable. He otherwise denies any chest discomfort, headaches or vision issues. . Tobacco dependency: Continues to smoke half pack of cigarettes per day. Not interested in quitting at this time. .. opiate dependence: Continues on methadone through a local methadone clinic. currently on 100mg. He does report labs in from time to time depending his mental health. Lumbar disc disease: Has establish care with [facility] and underwent a lumbar spine MRI and is awaiting results. Continues with the use gabapentin and methocarbamol. Did see is medical policy specialist in the past to which he was getting therapy with [facility]. ? . ? Anxiety: He reports anxiety has been much better controlled since he has reduced his marijuana intake. [facility] Medical History Primary insomnia Uncomplicated opioid dependence Anxiety Epidermal cyst of neck Surgical History History of removal of cyst Family History Father Prostate cancer Stroke Mother Alzheimers disease Mental health disorder Sister Dementia in Alzheimer's disease Mental health disorder Sister Breast cancer Social History Housing: Apartment Alcohol intake: current Alcohol intake frequency: holidays/special occasions only Patient Tobacco Use Status: Current everyday Tobacco user Tobacco use type: Cigarette Cigarette Packs Per Day: 0.5 Cigarettes Per Day: 10 e-Cigarette/Vaping Use: Never Used Second Hand Smoke Exposure: Yes Substance Use Type: Heroin and Marijuana service: No Current occupational status: unemployed Cognitive needs: No Hearing needs: No Vision needs: Yes Questionnaire Thrive Questionnaire Date Thrive assessed: 11/09/23 ARACELIS-7 AMB Questionnaire ARACELIS-7 Date ARACELIS - 7 assessed: 11/09/23 Source: Developed by Drs. Inocencio Victor, Itzel Burden, Say Sung and colleagues, with an educational zhane from [employer]. Review of Systems Const Denies headache(s) Eyes Denies loss of vision ENT Denies vertigo, Denies dizziness, Denies headache(s) and Denies sore throat Card Denies chest pain, Denies leg edema and Denies lightheadedness Resp Denies cough, Denies hemoptysis and Denies wheezing GI Denies abdominal pain, Denies melena, Denies constipation, Denies diarrhea and Denies vomiting Denies dysuria, Denies urinary frequency and Denies urinary urgency Musc Denies arthralgias, Denies joint swelling, Denies numbness and Denies tingling Neuro Denies Abnormal speech present, Denies behavioral changes, Denies vertigo, Denies dizziness, Denies headache(s), Denies loss of vision, Denies memory loss, Denies numbness and Denies tingling Psych Denies anxiety, Denies behavioral changes, Denies depression, Denies memory loss and Denies panic attacks [place]/Lymph Denies easy bleeding and Denies easy bruising Aller/Immun Denies wheezing Physical exam (Primary Care) Vital Signs: Last Vital Signs Pulse 70 01/31/24 13:55 BP 138/62 01/31/24 13:55 Pulse Ox 96 01/31/24 13:55 Oxygen Delivery Method Room Air 01/31/24 13:55 BMI result Body Mass Index 22.1 Tobacco/Smoking Status: Tobacco use Status Tobacco use date assessed 11/09/23 01/31/24 13:57 Patient Tobacco Use Status Current everyday Tobacco 01/31/24 13:57 Tobacco use type Cigarette 01/31/24 13:57 e-Cigarette/Vaping Use Never Used 01/31/24 13:57 Are you ready to quit: No Tobacco cessation counseling provided: Yes Items discussed: Nicotine replacement Relapse Prevention: discussed the importance of a supportive environment, discussed negative mood or depression after quitting, weight gain after smoking is common and discussed dietary, exercise and/or lifestyle changes Number of minutes spent counselin CPT code: 05299 - 4-10 Minutes Thrive Assessment: Date of Thrive Assessment Date Thrive assessed 11/09/23 01/31/24 13:57 Const General: healthy appearing, no acute distress, alert and awake Nutritional Appearance: well nourished Orientation/consciousness: oriented to person, oriented to place and oriented to time HENMT Ears: TM's normal bilaterally General nose exam: Normal nasal mucous membranes and turbinates present Eyes Conjunctivae: conjunctivae normal Sclerae: sclerae normal Pupils: Equal, round and reactive pupils present Neck Neck: Yes no lymphadenopathy and Yes no JVD Thyroid: Thyroid normal Carotids: no bruits Resp Effort & Inspection: normal respiratory effort and not tachypneic Auscultation: no crackles, no rales, no rhonchi and no wheezes Cardio Rate: regular rate Rhythm: regular rhythm Heart sounds: no murmurs and normal S1 and S2 GI Palpation (GI): Soft to palpation, nontender, no hepatomegaly and no splenomegaly Auscultation: normal bowel sounds Skin General skin exam: no rashes or lesions noted and dry skin Neuro General: oriented to person, oriented to place and oriented to time Cranial nerves: Yes Equal, round and reactive pupils present Speech: No Abnormal speech present Gait exam (Neuro): Normal gait present Motor exam (neuro): no tremor noted Extrem Right upper extremity: full ROM Left upper extremity: full ROM Right lower extremity: full ROM; no edema Left lower extremity: full ROM; no edema Psych Mental Status: mental status grossly normal Speech and movement: Normal speech and movement present Affect: normal affect Attitude: cooperative Thought process: Normal thought process present Assessment and Plan Assessment & Plan (1) Essential hypertension: Code(s): I10 - Essential (primary) hypertension Plan: Blood pressure acceptable today in office. Will continue current dose of amlodipine. He reports taking half tablet daily. Goal blood pressures to be below 140/90 (2) Lumbar disc disease: Code(s): M51.9 - Unspecified thoracic, thoracolumbar and lumbosacral intervertebral disc disorder Plan: Has been experiencing with some acute on chronic lower lumbar spine pain Patient has establish care [facility]. He did undergo MRIs and awaiting results. Does have signs symptoms consistent with right-sided sciatica which will increase his gabapentin 800 mg b.i.d.. He continues with methocarbamol (3) Opiate dependence: Code(s): F11.20 - Opioid dependence, uncomplicated Qualifiers: Substance use status: uncomplicated Qualified Code(s): F11.20 - Opioid dependence, uncomplicated Plan: He has been stable on current dose methadone. currently at 100 mg daily. He does report having relapses from time to time., He promises he has been staying away from all street drugs. Does still use a small amount of marijuana (4) ARACELIS (generalized anxiety disorder): Code(s): F41.1 - Generalized anxiety disorder Plan: Patient reports his anxiety has been well controlled (5) Tobacco dependence: Code(s): F17.200 - Nicotine dependence, unspecified, uncomplicated Plan: Patient understands he needs to quit smoking, declines my offers to start nicotine replacement therapy. He will try to wean down for is smoking on his own. Medications: Refilled gabapentin 800 mg PO BID 90 days 180 tabs 1RF M54.31 - Sciatica, right side amlodipine 10 mg PO DAILY 90 tabs 1RF M51.9 - Unspecified thoracic, thoracolumbar and lumbosacral intervertebral disc disorder Patient Instructions: Goal: Quit smoking :Barriers : Availability of cigarettes Coding Level of Care Code Est Pt Level 4 (12955) Complex EM visit Add On G2211 Diagnoses Essential hypertension I10 Lumbar disc disease M51.9 Uncomplicated opioid dependence F11.20 Substance use status: uncomplicated ARACELIS (generalized anxiety disorder) F41.1 Tobacco dependence F17.200 Additional Codes Vital Signs *Quality* - CPT code: 57741 - 4-10 Minutes ([id number])
== END 2024-01-31 14:17 | disposition home or self-care (01) ==
PROVIDERS: PCP Physician Assistant; Visit Provider Physician Assistant
DX: I10 Essential (primary) hypertension (principal); M51.9 Unspecified thoracic, thoracolumbar and lumbosacral intervertebral disc disorder; F11.20 Opioid dependence, uncomplicated; F41.1 Generalized anxiety disorder; F17.210 Nicotine dependence, cigarettes, uncomplicated
CPT/HCPCS: 99214; G2211

== ENCOUNTER 2024-02-08 09:26 | Outpatient (AMB) | payer OTHER, SELFPAY ==
--- NOTE | 2024-02-08 09:31 | A.SPINEOV_ITS ---
Intake Visit Reasons: Spinal stenosis Intake Note: Mr. Christal Ortega is here today c/o back pain. Turkey Cleaner Required: No Allergies sertraline Adverse Reaction (Intermediate, Verified 02/08/24 09:34) inadequate response Assessment & Plan Assessment & Plan (1) Lumbar spinal stenosis: Code(s): M48.061 - Spinal stenosis, lumbar region without neurogenic claudication Category: Medical (2) Lumbar degenerative disc disease: Code(s): M51.36 - Other intervertebral disc degeneration, lumbar region Category: Medical Plan Dear Pretty Thank you for referring Mr Macdonald to our office today. This is a 58-year-old gentleman presents to the office today for evaluation of chronic on and off back pain and bilateral lower extremity pain that has been going on for many years. He had a severe flare-up last year that left him bed-bound for a number of weeks and debilitated him for a few months. Ultimately went away on its own. When he gets a flare-up, generally he will take gabapentin, methocarbamol. He is tried things like ibuprofen and Tylenol in the past without any success so he does not use those currently. He also takes methadone for history of opioid abuse so there is a component of that medication that also helps. He has gone through physical therapy and even had a cortisone injection a few years ago. He is here today to follow-up on an MRI done showing severe stenosis at L3-4 amongst other degenerative changes. He currently really has no symptoms at this time that are active and bothering him other than just some mild back discomfort. PMH: Hypertension, but otherwise no history of heart attacks, strokes, lung issues, kidney, liver, blood disorders, cancer, no previous history of back surgery. Denies any history of fevers, chills or any previous history of osteomyelitis. Social hx: He smokes a half a pack a cigarettes a day, smokes marijuana daily but does not use any alcohol. He did have a previous issue with opiates, specifically he used to snort heroin. He has been clean now for about 3 months in his been on a program taking methadone. Medications: Amlodipine, gabapentin, methadone, methocarbamol Allergies: None Physical exam: Awake alert oriented no acute distress, gait normal, strength and reflexes normal Imaging review: Lumbar MRI done at [facility] compared to imaging done at [facility] last year in February. This shows that the gentleman has chronic findings of disc degeneration at L5-S1 with neuroforaminal narrowing. Last year he had a herniated disc on the left at L5-S1 but that seems to have resolved. Up above at L3-4 he has a grade 1 spondylolisthesis with moderate to severe central canal stenosis. Last year there was edema in the facet suggestive of stress that seems to have resolved. He has an x-ray done in 2019 which shows normal alignment and no evidence of the spondylolisthesis at L3-4. Impression: 58-year-old male presents with chronic low back pain and bilateral leg pain on and off with occasional flare-ups. Last year he had a very severe flare-up that left him bed-bound for awhile and in severe pain. I reviewed his MRI from last year in his possible that it was either related to inflammation around the facet at L3-4 we as the spondylolisthesis oriented as very tiny acute disc herniation at L5-S1 on the left. Either way, both things seemed to resolve both clinically and on his imaging. He does have chronic degenerative changes though that may explain some of his current symptoms. Right now he has no pain and is not in any need or interest of surgery. I discussed with him and reviewed all his imaging with him and showed him the MRIs. We discussed the fact that if this continues to recur and flare-up, the combination of back pain and bilateral leg pain would mean he is likely looking at a fusion surgery. Because he has 2 different segments of degeneration that are fairly severe, it could be a multiple level fusion. He understands that this would entail a lengthy recovery and right now he has not interested in pursuing any of that because he mostly does not have any major symptoms. Because of his history of narcotic abuse, it will also make his recovery all the more difficult. He will contact us down the road if something changes. Thank you for allowing us to care for your patient. The total time spent with this visit with this patient was 45 minutes reviewing history, physical exam, lumbar imaging review, and implementation of treatment plan or further diagnostic testing Riki Moya MD,PhD [facility] Coding Level of Care Code New Pt Level 4 (14727) Diagnoses Lumbar spinal stenosis M48.061 Lumbar degenerative disc disease M51.36
== END 2024-02-08 09:51 | disposition home or self-care (01) ==
PROVIDERS: PCP Physician Assistant; Referring Provider Nurse Practitioner Family; Visit Provider Physician Assistant
DX: M48.061 Spinal stenosis, lumbar region without neurogenic claudication (principal); M51.36 Other intervertebral disc degeneration, lumbar region
CPT/HCPCS: 99204

== ENCOUNTER → 2024-02-08 09:26 | Outpatient (BNVA) | payer OTHER, SELFPAY | PROVIDERS: PCP Physician Assistant; Visit Provider Physician Assistant | DX: M48.061 Spinal stenosis, lumbar region without neurogenic claudication (principal); M51.36 Other intervertebral disc degeneration, lumbar region | CPT/HCPCS: 99202 ==

== ENCOUNTER 2024-12-17 15:03 | Outpatient (AMB) | payer OTHER, SELFPAY ==
--- NOTE | 2024-12-17 15:10 | MHC.PC.OV ---
Vital Signs 12/17/24 15:11 Height 5 ft 3 in Weight 129 lb 2 oz BMI 22.9 BP 112/70 Blood Pressure Location Lt brachial Position Sitting Pulse 78 Pulse Source Pulse Oximeter Temp 97.3 F Temp Source Temporal Artery Scan Pulse Oximetry (%) 98 Oxygen Delivery Method Room Air Intake Visit Reasons: Anxiety follow-up Vibrating Screen Operator Required: No Accompanied by: Self / Same As Patient Allergies sertraline Adverse Reaction (Intermediate, Verified 12/17/24 15:17) inadequate response Medication List - Last Reconciled 12/17/24 by Daniel Pulido PA-C amlodipine 10 mg PO DAILY blood pressure monitor (Blood Pressure Kit) As directed gabapentin 800 mg PO BID 90 days methadone 71 mg PO DAILY methocarbamol 1,000 mg (2 x 500 mg) PO Q8H Tobacco use date assessed: 12/17/24 Dental Screening Dental Screen Date: 12/17/24 Did you have a dental visit in the last 12 months?: Yes Did you have a dental problem in the last 6 months where you did not have access to dental care?: No Was dental information given to patient?: Patient has dentist HPI Anxiety follow-up HPI Details Patient is a 59-year-old male here today for a follow-up visit ?has a past medical history significant for generalized anxiety disorder, hep C, opiate dependence,? chronic lumbar spine pain. ? .. Hypertension: Blood pressure acceptable today in office.. Patient continues on amlodipine 10 mg with good effect on his blood pressure . Tobacco dependency: Continues to smoke half pack of cigarettes per day. Not interested in quitting at this time. .. opiate dependence: Continues on methadone through a local methadone clinic in his trying to slowly wean his methadone dose. . He does report labs in from time to time depending his mental health. ? . ? Anxiety: He has experienced increased anxiety symptoms, influenced significantly by his current living situation, which is a housing project environment that he finds isolating and unstimulating. Although Buspirone (BuSpar) was previously prescribed for anxiety, the patient reports not having used it recently. [facility] Medical History Primary insomnia Uncomplicated opioid dependence Anxiety Epidermal cyst of neck Surgical History History of removal of cyst Family History Father Prostate cancer Stroke Mother Alzheimers disease Mental health disorder Sister Dementia in Alzheimer's disease Mental health disorder Sister Breast cancer Social History Housing: Apartment Alcohol intake: current Alcohol intake frequency: holidays/special occasions only Patient Tobacco Use Status: Current everyday Tobacco user Tobacco use type: Cigarette Cigarette Packs Per Day: 0.5 Cigarettes Per Day: 10 e-Cigarette/Vaping Use: Never Used Second Hand Smoke Exposure: Yes Substance Use Type: Heroin and Marijuana service: No Current occupational status: unemployed Cognitive needs: No Hearing needs: No Vision needs: Yes Questionnaire PHQ-9 Over the last 2 weeks, how often have you been bothered by any of the following problems? 1. Little interest or pleasure in doing things: not at all 2. Feeling down, depressed, or hopeless: nearly every day 3. Trouble falling or staying asleep, or sleeping too much: nearly every day 4. Feeling tired or having little energy: more than half the days 5. Poor appetite or overeating: not at all 6. Feeling bad about yourself - or that you are a failure or have let yourself or your family down: more than half the days 7. Trouble concentrating on things, such as reading the newspaper or watching television: not at all 8. Moving or speaking so slowly that other people could have noticed. Or the opposite - being so fidgety or restless that you have been moving around a lot more than usual: not at all 9. Thoughts that you would be better off or of hurting yourself in some way: nearly every day Total score: 13 Depression Screening Interpretation: Positive Depression Screening Follow-up: Existing condition Depression Screening Done: Yes 28115 - PHQ-9 Billing: Yes Source: Developed by Drs. Inocencio Victor, Itzel Burden, Say Sung and colleagues, with an educational zhane from [employer]. Thrive Questionnaire Date Thrive assessed: 12/17/24 I am a: Patient What is your living situation today?: I have a steady place to live Within the past 12 months, did the food you bought not last and you didn't have the money to get more?: Never true Within the past 12 months, did you worry whether your food would run out before you got money to buy more?: Never true Do you have trouble paying for medicines?: No Do you have trouble getting transportation to medical appointments?: No Do you have trouble paying your heating and electricity bill?: No Do you have trouble taking care of your child, family member or friend?: No Do you have trouble with day-to-day activities such as bathing, preparing meals, shopping, managing finances, etc.?: No Are you currently unemployed and looking for a job?: No Are you interested in more education?: No Please select the resources that you would like help with: None Currently or been in a relationship where the following occur: No concerns reported THRIVE Score: 0 AUDIT C Alcohol Use Questionnaire (AUDIT-C) 1. How often do you have a drink containing alcohol?: Never 3. How often do you have six or more drinks on one occasion?: Never Total Score: 0 ARACELIS-7 AMB Questionnaire ARACELIS-7 Date ARACELIS - 7 assessed: 12/17/24 Feeling nervous, anxious, or on edge: 3 = Nearly every day Not being able to stop or control worryin = Nearly every day Worrying too much about different things: 3 = Nearly every day Trouble relaxin = Nearly every day Being so restless that it is hard to sit still: 3 = Nearly every day Becoming easily annoyed or irritable: 3 = Nearly every day Feeling afraid as if something awful might happen: 3 = Nearly every day Total ARACELIS-7 score (0-4 normal; 5-9 mild; 10-14 moderate; 15-21 severe): 21 Source: Developed by Drs. Inocencio Victor, Itzel Burden, Say Sung and colleagues, with an educational zhane from [employer]. ARACELIS-7 Assessment Billing ARACELIS-7 Assessment Tool: ARACELIS-7 Assessment 90692 Review of Systems Const Denies headache(s) Eyes Denies loss of vision ENT Denies vertigo, Denies dizziness, Denies headache(s) and Denies sore throat Card Denies chest pain, Denies leg edema and Denies lightheadedness Resp Denies cough, Denies hemoptysis and Denies wheezing GI Denies abdominal pain, Denies melena, Denies constipation, Denies diarrhea and Denies vomiting Denies dysuria, Denies urinary frequency and Denies urinary urgency Musc Denies arthralgias, Denies joint swelling, Denies numbness and Denies tingling Neuro Denies Abnormal speech present, Denies behavioral changes, Denies vertigo, Denies dizziness, Denies headache(s), Denies loss of vision, Denies memory loss, Denies numbness and Denies tingling Psych Denies anxiety, Denies behavioral changes, Denies depression, Denies memory loss and Denies panic attacks [place]/Lymph Denies easy bleeding and Denies easy bruising Aller/Immun Denies wheezing Physical exam (Primary Care) Vital Signs: Last Vital Signs Temp 97.3 F 12/17/24 15:11 Pulse 78 12/17/24 15:11 BP 112/70 12/17/24 15:11 Pulse Ox 98 12/17/24 15:11 Oxygen Delivery Method Room Air 12/17/24 15:11 BMI result Body Mass Index 22.9 Tobacco/Smoking Status: Tobacco use Status Tobacco use date assessed 12/17/24 12/17/24 15:20 Patient Tobacco Use Status Current everyday Tobacco 12/17/24 15:20 Tobacco use type Cigarette 12/17/24 15:20 e-Cigarette/Vaping Use Never Used 12/17/24 15:20 Are you ready to quit: No Tobacco cessation counseling provided: Yes Items discussed: Nicotine replacement Relapse Prevention: discussed the importance of a supportive environment, discussed negative mood or depression after quitting, weight gain after smoking is common and discussed dietary, exercise and/or lifestyle changes Number of minutes spent counselin CPT code: 37287 - 4-10 Minutes PHQ-9: PHQ-9 Score PHQ-9: Total score 13 12/17/24 15:34 Depression Screening Interpretation: Positive Depression Screening Follow-up: Existing condition Thrive Assessment: Date of Thrive Assessment Date Thrive assessed 12/17/24 12/17/24 15:20 Currently or been in a relationship where the following occur: No concerns reported Const General: healthy appearing, no acute distress, alert and awake Nutritional Appearance: well nourished Orientation/consciousness: oriented to person, oriented to place and oriented to time HENMT Ears: TM's normal bilaterally General nose exam: Normal nasal mucous membranes and turbinates present Eyes Conjunctivae: conjunctivae normal Sclerae: sclerae normal Pupils: Equal, round and reactive pupils present Neck Neck: Yes no lymphadenopathy and Yes no JVD Thyroid: Thyroid normal Carotids: no bruits Resp Effort & Inspection: normal respiratory effort and not tachypneic Auscultation: no crackles, no rales, no rhonchi and no wheezes Cardio Rate: regular rate Rhythm: regular rhythm Heart sounds: no murmurs and normal S1 and S2 GI Palpation (GI): Soft to palpation, nontender, no hepatomegaly and no splenomegaly Auscultation: normal bowel sounds Skin General skin exam: no rashes or lesions noted and dry skin Neuro General: oriented to person, oriented to place and oriented to time Cranial nerves: Yes Equal, round and reactive pupils present Speech: No Abnormal speech present Gait exam (Neuro): Normal gait present Motor exam (neuro): no tremor noted Extrem Right upper extremity: full ROM Left upper extremity: full ROM Right lower extremity: full ROM; no edema Left lower extremity: full ROM; no edema Psych Mental Status: mental status grossly normal Speech and movement: Normal speech and movement present Affect: normal affect Attitude: cooperative Thought process: Normal thought process present Coding Level of Care Code Est Pt Level 4 (17970) Diagnoses ARACELIS (generalized anxiety disorder) F41.1 Mild recurrent major depression F33.0 Uncomplicated opioid dependence F11.20 Substance use status: uncomplicated Tobacco dependence F17.200 Additional Codes ARACELIS-7 Assessment Billing - ARACELIS-7 Assessment Tool: ARACELIS-7 Assessment 18856 ([id number]) PHQ-9 - 51286 - PHQ-9 Billing: Yes ([id number]) Vital Signs *Quality* - CPT code: 39946 - 4-10 Minutes ([id number]) Assessment & Plan Assessment & Plan (1) ARACELIS (generalized anxiety disorder): Code(s): F41.1 - Generalized anxiety disorder Category: Medical Plan: Patient's ARACELIS-7 score positive for anxiety which has been existing condition for him The patient showed increasing anxiety symptoms due to environmental factors. I have prescribed Buspirone as discussed, with twice-daily dosing, and will reassess in the next follow-up. (2) Mild recurrent major depression: Code(s): F33.0 - Major depressive disorder, recurrent, mild Category: Medical Plan: Patient's PHQ-9 score positive for depression which has been existing condition for him. (3) Opiate dependence: Code(s): F11.20 - Opioid dependence, uncomplicated Category: Medical Qualifiers: Substance use status: uncomplicated Qualified Code(s): F11.20 - Opioid dependence, uncomplicated Plan: Patient continues to follow methadone clinic in his slowly weaning down his methadone dose. (4) Tobacco dependence: Code(s): F17.200 - Nicotine dependence, unspecified, uncomplicated Category: Medical Plan: Patient does understand he needs to quit smoking though has no motivation to quit smoking at this time. Have offered nicotine replacement to him though he declines. Orders: Orders Complete Blood Count no Diff 12/17/24 I10 - Essential (primary) hypertension Prostate Specific Antigen Scr 12/17/24 I10 - Essential (primary) hypertension, Z12.5 - Encounter for screening for malignant neoplasm of prostate Microalbumin, Random (w Creat) 12/17/24 I10 - Essential (primary) hypertension Comprehensive [place]. Panel Fast 12/17/24 I10 - Essential (primary) hypertension Medications: New buspirone 5 mg PO BID 60 tabs 3RF 30 days F41.1 - Generalized anxiety disorder
[2024-12-17 15:11] VITALS: BP 112/70; PULSE 78; TEMP 36.3; O2SAT 98; BMI 22.9
--- OUTSIDE RECORDS SUMMARY | 2024-12-17 16:16 | XMS_ITS | Data Portability ---
Author Organization [facility], [place] Address [address] [place] [id number] Care Team Providers Care Accounts Receivable Coordinator Name Role Phone DANETTE BERNAL Primary Care Provider Assessment No assessment recorded. Plan of Treatment Reminders Order Date Submit Date Provider Last Modified By Organization Details Last Modified Time Details Appointments None recorded. Lab hepatic function panel, serum 2017 018 [email or web address] Not available 8 10:38:55 Referral None recorded. Procedures None recorded. Surgeries None recorded. Imaging MRI, abdomen, w/wo contrast 2017 018 [email or web address] Not available 8 16:26:27 Medication Orders None recorded. Patient TargetsNo targets recorded. Patient InstructionsNo instructions recorded. Reason for Referral None Reported. Results Created Date Observation Date Name Description Value Unit Range Abnormal Flag Note LastModifiedBy Organization Detail LastModifiedTime 01/11/20 18 01/10/2018 CMP, serum or plasm a glucose 94 mg/dL 65-139 normal The gluco se refer ence range is based on a non-f astin g state . Not Available [facility] [employer] [facility] [place], [address], 01/10/2018 13:50:48 01/11/20 18 01/10/2018 CMP, serum or plasm a sodium 139 mmol/ L 135-14 6 normal Not Available [facility] [place], [address], 01/10/2018 13:50:48 01/11/20 18 01/10/2018 CMP, serum or plasm a potassium 4.0 mmol/ L 3.5-5. 3 normal Not Available [facility] [place], [address], 01/10/2018 13:50:48 01/11/20 18 01/10/2018 CMP, serum or plasm a chloride 104 mmol/ L 98-110 normal Not Available [facility] [place], [address], 01/10/2018 13:50:48 01/11/20 18 01/10/2018 CMP, serum or plasm a carbon dioxide 28 mmol/ L 20-31 normal Not Available [facility] [place], [address], 01/10/2018 13:50:48 01/11/20 18 01/10/2018 CMP, serum or plasm a urea nitrogen 19 mg/dL 7-25 normal Not Available [facility] [place], [address], 01/10/2018 13:50:48 01/11/20 18 01/10/2018 CMP, serum or plasm a creatinine 1.13 mg/dL 0.70-1 .33 normal The upper refer ence limit for Creat inine is appro ximat chicho 13% highe r for peopl e ident ified as Afric an-Am vida n. Not Available [facility] [place], [address], 01/10/2018 13:50:48 01/11/20 18 01/10/2018 CMP, serum or plasm a BUN/creatini ne ratio NOTE (calc ) 6-22 normal Bun/C reati nine ratio is not repor naeem when the Bun and Creat inine value s are withi n ayanna l limit s. Not Available [facility] [place], [address], 01/10/2018 13:50:48 01/11/20 18 01/10/2018 CMP, serum or plasm a calcium 9.4 mg/dL 8.6-10 .3 normal Not Available [facility] [place], [address], 01/10/2018 13:50:48 01/11/20 18 01/10/2018 CMP, serum or plasm a protein, total 7.2 g/dL 6.1-8. 1 normal Not Available [facility] [place], [address], 01/10/2018 13:50:48 01/11/20 18 01/10/2018 CMP, serum or plasm a albumin 4.5 g/dL 3.6-5. 1 normal Not Available [facility] [address] [place], [address], 01/10/2018 13:50:48 01/11/20 18 01/10/2018 CMP, serum or plasm a globulin 2.7 g/dL_ (calc ) 1.9-3. 7 normal Not Available [facility] [address] [place], [address], 01/10/2018 13:50:48 01/11/20 18 01/10/2018 CMP, serum or plasm a albumin/glob ulin ratio 1.7 (calc ) 1.0-2. 5 normal Not Available [facility] [place], [address], 01/10/2018 13:50:48 01/11/20 18 01/10/2018 CMP, serum or plasm a bilirubin,to rupesh 0.4 mg/dL 0.2-1. 2 normal Not Available [facility] [place], [address], 01/10/2018 13:50:48 01/11/20 18 01/10/2018 CMP, serum or plasm a alkaline phosphatase 58 U/L 40-115 normal Not Available [facility] [place], [address], 01/10/2018 13:50:48 01/11/20 18 01/10/2018 CMP, serum or plasm a AST 18 U/L 10-35 normal Not Available [facility] [place], [address], 01/10/2018 13:50:48 01/11/20 18 01/10/2018 CMP, serum or plasm a ALT 9 U/L 9-46 normal Not Available [facility] [place], [address], 01/10/2018 13:50:48 01/11/20 18 01/10/2018 CMP, serum or plasm a eGFR non afr guinean 74 mL/mi n/1.7 3m2 >=60 normal Not Available [facility] [place], [address], 01/10/2018 13:50:48 01/11/20 18 01/10/2018 CMP, serum or plasm a eGFR 86 mL/mi n/1.7 3m2 >=60 normal Not Available [facility] [place], [address], 01/10/2018 13:50:48 01/11/20 18 01/10/2018 CBC w/ auto diff WBC 8.1 thous /mcL 3.8-10 .8 normal Not Available [facility] [place], [address], 01/10/2018 13:50:48 01/11/20 18 01/10/2018 CBC w/ auto diff RBC 4.49 mill/ mcL 4.20-5 .80 normal Not Available [facility] [place], [address], 01/10/2018 13:50:48 01/11/20 18 01/10/2018 CBC w/ auto diff hemoglobin 12.4 g/dL 13.2-1 7.1 low Not Available [facility] [place], [address], 01/10/2018 13:50:48 01/11/20 18 01/10/2018 CBC w/ auto diff hematocrit 40.1 % 38.5-5 0.0 normal Not Available [facility] [place], [address], 01/10/2018 13:50:48 01/11/20 18 01/10/2018 CBC w/ auto diff MCV 89.2 fL 80.0-1 00.0 normal Not Available [facility] [place], [address], 01/10/2018 13:50:48 01/11/20 18 01/10/2018 CBC w/ auto diff MCH 27.6 pg 27.0-3 3.0 normal Not Available [facility] [place], [address], 01/10/2018 13:50:48 01/11/20 18 01/10/2018 CBC w/ auto diff MCHC 31.0 g/dL 32.0-3 6.0 low Not Available [facility] [place], [address], 01/10/2018 13:50:48 01/11/20 18 01/10/2018 CBC w/ auto diff RDW 14.7 % 11.0-1 5.0 normal Not Available [facility] [place], [address], 01/10/2018 13:50:48 01/11/20 18 01/10/2018 CBC w/ auto diff platelet count 236 thous /mcL 140-40 0 normal Not Available [facility] [place], [address], 01/10/2018 13:50:48 01/11/20 18 01/10/2018 CBC w/ auto diff MPV 7.4 fL 7.5-12 .5 low Not Available [facility] [place], [address], 01/10/2018 13:50:48 01/11/20 18 01/10/2018 CBC w/ auto diff total neutrophils, % 55.8 % 38-80 normal Not Available [facility] [place], [address], 01/10/2018 13:50:48 01/11/20 18 01/10/2018 CBC w/ auto diff total lymphocytes, % 32.3 % 15-49 normal Not Available [facility] [place], [address], 01/10/2018 13:50:48 01/11/20 18 01/10/2018 CBC w/ auto diff monocytes,% 6.3 % 0-13 normal Not Available [facility] [place], [address], 01/10/2018 13:50:48 01/11/20 18 01/10/2018 CBC w/ auto diff eosinophils, % 5.1 % 0-8 normal Not Available [facility] [place], [address], 01/10/2018 13:50:48 01/11/20 18 01/10/2018 CBC w/ auto diff basophils,% 0.5 % 0-2 normal Not Available [facility] [place], [address], 01/10/2018 13:50:48 01/11/20 18 01/10/2018 CBC w/ auto diff neutrophils, absolute 4520 cells /mcL 1500-7 800 normal Not Available [facility] [place], [address], 01/10/2018 13:50:48 01/11/20 18 01/10/2018 CBC w/ auto diff lymphocytes, absolute 2616 cells /mcL 850-39 00 normal Not Available [facility] [place], [address], 01/10/2018 13:50:48 01/11/20 18 01/10/2018 CBC w/ auto diff monocytes,ab solute 510 cells /mcL 200-95 0 normal Not Available [facility] [place], [address], 01/10/2018 13:50:48 01/11/20 18 01/10/2018 CBC w/ auto diff eosinophils, absolute 413 cells /mcL 15-500 normal Not Available [facility] [place], [address], 01/10/2018 13:50:48 01/11/20 18 01/10/2018 CBC w/ auto diff basophils,ab solute 41 cells /mcL 0-200 normal Not Available [facility] [place], [address], 01/10/2018 13:50:48 01/11/20 18 01/10/2018 CBC w/ auto diff differential normal An instr ument diffe elizabeth mary was perfo rmed. Not Available [facility] [place], [address], 01/10/2018 13:50:48 01/11/20 18 01/10/2018 afp (alph a-fet oprot ein) tumor marke r, serum or plasm a alpha-fetopr otein,tumor 2.2 NG/mL <6.1 normal This test was perfo rmed using the Beckm an Coult er chemi lumin escen t metho d. Value s obtai ansley from diffe rent assay metho ds canno t be used inter hayes eably . AFP level s, regar dless of value , shoul d not be inter prete d as absol hayde evide nce of the prese nce or absen ce of disea se. Not Available [facility] [place], [address], 01/10/2018 13:50:49 01/11/20 18 01/10/2018 YEMI (anti nucle ar antib odies ) scree n, ifa, serum YEMI screen,ifa Negati ve negati ve normal YEMI IFA is a first line scree n for detec ting the prese nce of up to appro ximat chicho 150 autoa ntibo dies in vario us autoi mmune disea ses. A negat jayna YEMI IFA resul t sugge sts YEMI-a ssoci ated autoi mmune disea ses are not prese nt at this time. Visit Physi lore FAQs for inter preta tion of all antib odies in the [place], preva lence , and assoc iatio n with disea ses at http: //[facility] [place] catio n.Que stDia gnost ics.c om/fa q/FAQ 177 Not Available [facility] [place] [facility] [address], [place], [address], 01/10/2018 13:50:49 01/11/20 18 01/10/2018 mitoc hondr ial Ab, serum mitochondria l Ab Negati ve negati ve normal No colle ction date recei césar. We have used the date the speci men was recei césar by [facility] as the colle ction date. If this is incor rect, pleas e conta ct us at [phone] -MYQU EST. Not Available IP [facility] [place] [facility] [address], [place], [address], 01/10/2018 13:50:50 01/06/20 18 05/22/2017 US, abdom en No observ ation record ed. [email or web address] Not Available 2017 16:48:42 Result Notes None recorded. 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 [address], [place], [address], [facility] 8 13:07:39 Alkaline phosphatase above reference range 523588890 Active 2017 Haim Venegas M.D. [address], [place], [address], [facility] 8 13:18:25 Screening for malignant neoplasm of colon Active 2017 Haim Venegas M.D. [address], [place], [address], [facility] 8 13:19:39 Problem Notes None recorded. Procedures Surgical History None recorded. Imaging Results Imaging Date Name Status LastModified by Organiz ation Details LastModified Time 05/22/2017 US, abdomen completed [email or web address] Information n ot available 01/05/2018 16:48:42 Procedure Notes None recorded. Medical Equipment None Reported. Allergies No known drug allergies Medications Name Sig Start Date Stop Date Status Note LastModified by Organization Details LastModified Time quetiapine 25 mg tablet active Not Available Not Available No t Available clonazepam 0.5 mg tablet 2017 completed Not Available Not Available Not Available sertraline 100 mg tablet 018 2017 completed Not Available Not Available Not Available buspirone 10 mg tablet active Not Available Not Available No t Available hydroxyzine HCl 25 mg tablet 2017 completed Not Available Not Available Not Available ibuprofen 600 mg tablet 2017 completed Not Available Not Available Not Available methadone 95 mg active Not Available Not Karlie ilable Not Available Vitals Date Recorded Body height Body mass index (BMI) Body weight Heart rate Systolic blood pressure Diastolic blood pressure Provider Name and Address Organization Details Last Updated DateTime 8 160.02 cm 25.2 kg/m2 98022.1 2 g 75 /min 124 mm[Hg] 82 mm[Hg] Amaya Massey 8 12:56:04 Social History Question Answer Notes LastModified by Organizat ion Details LastModified Time Tobacco Smoking Status Current Every Day Smoker Haim Venegas M.D. [address], [place], [address], [facility] [place] 01/05/2018 13:13:00 What Was The Date Of Your Most Recent Tobacco Screening? 01/05/2018 Information n ot available 03/07/2019 How Much Tobacco Do You Smoke? 0.25 PPD [email or web address] Information not available 01/05/2018 Sex: Unknown Functional Status None recorded. Mental Status None recorded. Family History Relationship Description Onset Age of this Age Resolved Age Notes LastModified by Organization Details LastModified Time Father Malignant neoplasm of prostate [email or web address] Not available 2017 13:12:46 Notes:no colon ca Medical History Condition Response diabetes N heart disease N hypertension N liver disease Y Past Encounters Encounter ID Performer Location Encounter Start Date Encounter Closed Date Diagnosis/Indication Diagnosis SNOMED-CT Code Diagnosis ICD10 Code Diagnosis Note [id number] Haim Venegas M.D. 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.5 see # 1methadone can cause biliary dilation but should have endoscopy to exclude an ampullary lesion Alkaline p hosphatase above reference range 244726426 R74.8 Will repeat labs and order MRI/MRCP with contrasthe may need ERCPlong talk with pt, had to look into hospital computer, 30 mins with pt Screening for malignant neoplasm of colon 113770738 Z12.11 Pt says he did a cologuard test last year Health Concerns Section Related Observation LastModified by Organization Detai ls LastModified Time None Recorded Concern Status LastModified by Organization Details LastModified Time None Recorded Advance Directives Directive None Recorded Payers Encounter Date Sequence Insurance Name Policy Number Policy Palafox Covered Member ID Palafox Member ID Guarantor Name 01/05/2018 1 [id number] Scooby Macdonald [id number] Scooby Macdonald Notes Date Note Type Note Provider Name and Address Organization Details Recorded Time 01/05/2018 text/html 52 yo on methadoneelevated ALP- 500; (+) AMA and dilated bile ductson sono and CTNo pruritus, no hx of [facility]ice[facility]- he has seen Dr Bejarano who recommended ERCP He says he had HCV and it went away- bloods 2017 negative for HCV Haim Venegas M.D. [address], [place], [address], [place] [facility] 01/05/2018 13:55:47
--- OUTSIDE RECORDS SUMMARY | 2024-12-17 16:16 | XMS_ITS | Clinical Summary ---
Author Organization [employer] Address [address] [place] [address] Care Team Providers Care Mail Handler Equipment Operator Name Role Phone Unavailable Primary Care Provider Unavailabl e Allergies No known active allergies Medications gabapentin (Neurontin) 300 MG capsule Take 300 mg by mouth. 0 Active lisinopril 20 MG tablet Take 20 mg by mouth in the morning. 3 Active busPIRone (Buspar) 5 MG tablet Take 5 mg by mouth 2 times daily. 3 Active methocarbamol (Robaxin) 500 MG tablet TAKE 2 TABLETS BY MOUTH EVERY 8 HOURS 3 Active methadone (Dolophine) 0.1 mg/mL solution Take by mouth. 0 Active amLODIPine (Norvasc) 10 MG tablet Take 10 mg by mouth Once per day. 4 Active gabapentin (Neurontin) 800 MG tablet TAKE 1 TABLET ORALLY 2 TIMES A DAY FOR 90 DAYS 4 Active chlorhexidine (Peridex) 0.12 % solution Please use 15 ml solution to swish teeth for 60 seconds. Spit. Do not rinse. 473 mL 4 Active Additional Information Patient not taking.Reported on 04/16/2024 methadone (Dolophine) 0.1 mg/mL solution Take by mouth. 0 Active Active Problems Problem Noted Date Diagnosed Date Dental calculus 04/16/2024 Dental plaque 04/16/2024 Encounters Date Type Department Care Team Description 10/03/2024 2:00 PM EST Office Visit [facility] [address] [place] [address] Duran Torres DDS from Last 3 Months Social History Tobacco Use Types Packs/Day Years Used Date Smoking Tobacco: Every Day Cigarettes 0.5 30 Smokeless Tobacco: Never Tobacco Cessation:Ready to Q uit: Not Asked; Counseling Given: Not Answered Alcohol Use Standard Drinks/Week Comments Not Currently 2 (1 standard drink = 0.6 oz pur e alcohol) Sex and Gender Information Value Date Recorded Sex Assigned at Male 06/13/2022 10:40 AM EDT Legal Sex Male 10:40 AM EDT Gender Identity Male 06/13/2022 10:40 AM EDT Sexual Orientation Straight 06/13/2022 10 :40 AM EDT Last Filed Vital Signs Vital Sign Reading Time Taken Comments Blood Pressure 122/70 04/30/2024 10:16 AM EDT Pulse 65 04/16/2024 2:14 PM EDT Temperature - - Respiratory Rate - - Oxygen Saturation - - Inhaled Oxygen Concentration - - Weight - - Height - - Body Mass Index - - Plan of Treatment Health Maintenance Due Date Last Done Comments CT Colonography 1964 Colonoscopy 1964 Colorectal Cancer Screening 1964 Depression Screening 1964 FIT DNA/Cologuard 1964 FIT 1964 FOBT 1964 HIV Screening 1964 Lipid Panel 1964 SDOH Screening 1964 Sigmoidoscopy 1964 Alcohol/Substance Use Screening 1976 Hepatitis C Screening 1982 Zoster Vaccines (1 of 2) 2014 Pneumococcal Vaccine: 50+ Years (2 of 2 - PCV) 05/07/2021 05/07/2020 Dental Oral Exam 07/19/2023 01/16/2023, 12/16/2021 Dental X-Ray: Bitewings 01/18/2024 01/17/20 23, 12/16/2021, 11/26/2021 COVID-19 Vaccine ( season) 2024 07/01/2021, 11/10/2020 Influenza Vaccine (#1) 2024 , 05/27/2020, 04/30/2019, Additional history exists Dental Prophylaxis 10/15/2024 04/16/2024 Dental X-Ray: Full Mouth 12/17/2024 12/16/2021 Tobacco Screening 10/03/2025 10/03/2024 DTaP/Tdap/Td Vaccines (2 - Td or Tdap) 04/10/2028 04/10/2018 RSV Patients and Patients Aged 60 years or older (1 - 1-dose 75+ series) 2039 HIB Vaccines Aged Out No longer eligi ble based on patient's age to complete this topic HPV Vaccines Aged Out No longer eligi ble based on patient's age to complete this topic Hepatitis A Vaccines Aged Out No long er eligible based on patient's age to complete this topic Hepatitis B Vaccines Aged Out No long er eligible based on patient's age to complete this topic IPV Vaccines Aged Out No longer eligi ble based on patient's age to complete this topic Meningococcal Vaccine Aged Out No gwyn ling eligible based on patient's age to complete this topic RSV under 20 months Aged Out No longe r eligible based on patient's age to complete this topic Rotavirus Vaccines Aged Out No longer eligible based on patient's age to complete this topic Procedures Procedure Name Priority Date/Time Associated Diagnosis Comments NO CHARGE VISIT Routine 10/03/2024 2:00 PM EST PROPHYLAXIS - ADULT Routine 04/16/2024 2 :15 PM EDT BITEWINGS - 4 RADIOGRAPHIC IMAGES Routine 01/16/2023 1:30 PM EDT PERIODIC ORAL EVALUATION - ESTABLISHED PATIENT Routine 01/16/2023 1:30 PM EDT INTRAORAL - COMPLETE SERIES OF RADIOGRAPHIC IMAGES Routine 12/16/2021 12:00 AM EDT from Last 3 Months or Most Recently Relevant to Health Maintenance Insurance [facility] [place] STAND ADULT
== END 2024-12-17 15:35 | disposition home or self-care (01) ==
LOC: HO.HMCH 15:04
PROVIDERS: PCP Physician Assistant; Visit Provider Physician Assistant
DX: F41.1 Generalized anxiety disorder (principal); F33.0 Major depressive disorder, recurrent, mild; F11.20 Opioid dependence, uncomplicated; F17.200 Nicotine dependence, unspecified, uncomplicated

== ENCOUNTER → 2024-12-17 15:03 | Outpatient (BNVA) | payer OTHER, SELFPAY | PROVIDERS: PCP Physician Assistant; Visit Provider Physician Assistant | DX: F41.1 Generalized anxiety disorder (principal); F33.0 Major depressive disorder, recurrent, mild; F11.20 Opioid dependence, uncomplicated; F17.210 Nicotine dependence, cigarettes, uncomplicated; I10 Essential (primary) hypertension; Z79.899 Other long term (current) drug therapy | CPT/HCPCS: 96127; 99212 ==

== ENCOUNTER 2025-03-25 08:22 | Outpatient (REF) | payer OTHER, SELFPAY ==
--- OUTSIDE RECORDS SUMMARY | 2025-03-25 08:37 | XMS_ITS | Clinical Summary ---
Author Organization [employer] Address [address] [place] [address] Care Team Providers Care Resident Associate Name Role Phone Unavailable Primary Care Provider [...] Date Dental calculus 04/16/2024 Dental plaque 04/16/2024 Social History Tobacco Use Types Packs/Day Years [...] Panel 1964 SDOH Screening 1964 Sigmoidoscopy 1964 Disability Screening 1964 Alcohol/Substance Use Screening 1976 Hepatitis C Screening 1982 Zoster Vaccines (1 of 2) 2014 Pneumococcal Vaccine: 50+ Years (2 of 2 - PCV) 05/07/2021 05/07/2020 Dental Oral Exam 07/19/2023 01/16/2023, 12/16/2021 Dental X-Ray: Bitewings 01/18/2024 01/17/20 23, 12/16/2021, 11/26/2021 COVID-19 Vaccine ( season) 2024 07/01/2021, 11/10/2020 Dental Prophylaxis 10/15/2024 04/16/2024 Dental X-Ray: Full Mouth 12/17/2024 12/16/2021 Influenza Vaccine (#1) 2025 , 05/27/2020, 04/30/2019, Additional history exists Tobacco Screening 10/03/2025 10/03/2024 DTaP/Tdap/Td Vaccines (2 [...] patient's age to complete this topic Meningococcal B Vaccine Aged Out No l onger eligible based on patient's age to complete [...] Procedure Name Priority Date/Time Associated Diagnosis Comments PROPHYLAXIS - ADULT Routine 04/16/2024 2 :15 PM EDT BITEWINGS - 4 RADIOGRAPHIC IMAGES Routine 01/16/2023 1:30 PM EDT PERIODIC ORAL EVALUATION - ESTABLISHED PATIENT Routine 01/16/2023 1:30 PM EDT INTRAORAL - COMPLETE SERIES OF RADIOGRAPHIC IMAGES Routine 12/16/2021 12:00 AM EDT from Last 3 Months or Most Recently Relevant to Health Maintenance Insurance [facility] MEDICAID STAND ADULT [place] [id number]
[2025-03-25 09:09] LABS: Hematocrit 38.2 % (42.0-52.0); Hemoglobin 12.6 g/dl (14.0-18.0); Mean Corpuscular HGB Conc 33.0 g/dl (31.0-36.0); Mean Corpuscular Hemoglobin 28.5 pg (27.0-33.0); Mean Corpuscular Volume 86.4 fL (80.0-98.0); NRBC Abs Auto 0.000 X10*3/uL (0.0-0.012); NRBC Pct Auto 0.0 /100WBC (0.0-0.2); Platelet Count 237 X10*3/uL (160-400); Red Blood Count 4.42 X10*6/uL (4.60-5.80); White Blood Count 7.0 X10*3/uL (4.8-10.8)
[2025-03-25 10:33] LABS: Alanine Aminotransferase 10 U/L (0-40); Albumin Level 4.1 g/dL (3.5-5.0); Alkaline Phosphatase 62 U/L (39-117); Anion Gap 10 (12-20); Aspartate Amino Transferase 22 U/L (5-37); Blood Urea Nitrogen 17 mg/dL (9-16); Calcium 8.7 mg/dL (8.4-10.2); Carbon Dioxide 29 mmol/L (22-29); Chloride 106 mmol/L (96-108); Estimated Glomerular Filt Rate > 60; Potassium 3.9 mmol/L (3.3-5.1); Sodium 141 mmol/L (135-145); Total Protein 6.9 g/dL (6.5-8.0)
[2025-03-25 10:56] LABS: Microalbum/Creatinine Ratio Ur 2.9 ug/mg cr (<30)
== END 2025-03-25 08:23 | disposition home or self-care (01) ==
LOC: HO.LAB 08:22
PROVIDERS: PCP Physician Assistant; Visit Provider Physician Assistant
DX: Z12.5 Encounter for screening for malignant neoplasm of prostate (principal); I10 Essential (primary) hypertension
CPT/HCPCS: 36415; 80053; 82043; 82570; 84153; 85027

== ENCOUNTER 2025-04-28 13:27 | Outpatient (AMB) | payer OTHER, SELFPAY ==
--- NOTE | 2025-04-28 13:40 | A.OFFPC_ITS ---
Vital Signs 04/28/25 13:43 Height 5 ft Weight 121 lb 6 oz BMI 23.7 BP 132/68 Blood Pressure Location Lt brachial Position Sitting Pulse 94 Pulse Source Pulse Oximeter Temp 96.8 F Temp Source Temporal Artery Scan Pulse Oximetry (%) 94 Oxygen Delivery Method Room Air Intake Visit Reasons: anxiety attack Intake Note: Patient is here to follow up on Anxiety Attack. Sludge Control Attendant Required: No Rivet Machine Operator: Not Required per policy Accompanied by: Self / Same As Patient Allergies sertraline Adverse Reaction (Intermediate, Verified 04/28/25 13:42) inadequate response Medication List - Last Reconciled 04/28/25 by Andreia Matt MD amlodipine 10 mg PO DAILY blood pressure monitor (Blood Pressure Kit) As directed buspirone 5 mg PO BID 30 days gabapentin 800 mg PO BID 90 days hydroxyzine HCl 10 mg PO TID PRN 10 days methadone 71 mg PO DAILY methocarbamol 1,000 mg (2 x 500 mg) PO Q8H Tobacco use date assessed: 04/28/25 Dental Screening Dental Screen Date: 12/17/24 HPI HPI Comments History of Present Illness Details The patient is a 59-year-old male presenting with anxiety and depression. He reports feeling anxious and depressed, with symptoms including a lack of appetite and a desire to avoid being alone. These feelings have been exacerbated by his recent relocation from [place] to a less populated area, which he finds isolating. He has been in his current location for seven years, initially moving to support his sister, who has since . He is currently taking buspirone for anxiety but questions its effectiveness, sometimes taking it up to three times a day. The patient reports a history of substance use disorder and currently using methadone as part of his recovery program. He smokes marijuana regularly, which he acknowledges may contribute to his anxiety and depression. He experiences insomnia, often waking up feeling the urge to leave his home, and reports difficulty with sleep quality. He also reports constipation, for which he has started taking milk of magnesia. FORMERLY [facility], [facility]–1983 Medical History Primary insomnia Uncomplicated opioid dependence Anxiety Epidermal cyst of neck Surgical History History of removal of cyst Family History Father Prostate cancer Stroke Mother Alzheimers disease Mental health disorder Sister Dementia in Alzheimer's disease Mental health disorder Sister Breast cancer Social History (Updated 04/28/25 @ 13:48 by SHAYY Thomas) Housing: Apartment Alcohol intake: current Alcohol intake frequency: does not drink Patient Tobacco Use Status: Current everyday Tobacco user Tobacco use type: Cigarette Cigarette Packs Per Day: 0.5 Cigarettes Per Day: 10 e-Cigarette/Vaping Use: Never Used Second Hand Smoke Exposure: Yes Substance Use Type: Heroin and Marijuana service: No Current occupational status: unemployed Cognitive needs: No Hearing needs: No Vision needs: Yes Questionnaire PHQ-9 Over the last 2 weeks, how often have you been bothered by any of the following problems? 1. Little interest or pleasure in doing things: nearly every day 2. Feeling down, depressed, or hopeless: nearly every day 3. Trouble falling or staying asleep, or sleeping too much: nearly every day 4. Feeling tired or having little energy: nearly every day 5. Poor appetite or overeating: nearly every day 6. Feeling bad about yourself - or that you are a failure or have let yourself or your family down: nearly every day 7. Trouble concentrating on things, such as reading the newspaper or watching television: nearly every day 8. Moving or speaking so slowly that other people could have noticed. Or the opposite - being so fidgety or restless that you have been moving around a lot more than usual: not at all 9. Thoughts that you would be better off or of hurting yourself in some way: nearly every day Total score: 24 Depression Screening Interpretation: Positive Depression Screening Follow-up: In treatment (On Buspar. ) and Follow-up Visit Requested (Will F-U in 1 month. ) Depression Screening Done: Yes 63668 - PHQ-9 Billing: Yes (Positive screening. Known condition. We will F-U in 1 month. Nurse navigator referral placed. ) Source: Developed by Drs. Inocencio Victor, Itzel Burden, Say Sung and colleagues, with an educational zhane from [employer]. Thrive Questionnaire Date Thrive assessed: 04/23/25 I am a: Patient What is your living situation today?: I have a steady place to live Within the past 12 months, did the food you bought not last and you didn't have the money to get more?: Never true Within the past 12 months, did you worry whether your food would run out before you got money to buy more?: Never true Do you have trouble paying for medicines?: I choose not to answer this question Do you have trouble getting transportation to medical appointments?: No Do you have trouble paying your heating and electricity bill?: No Do you have trouble taking care of your child, family member or friend?: I choose not to answer this question Do you have trouble with day-to-day activities such as bathing, preparing meals, shopping, managing finances, etc.?: No Are you currently unemployed and looking for a job?: No Are you interested in more education?: No Please select the resources that you would like help with: None Currently or been in a relationship where the following occur: I choose not to answer THRIVE Score: 0 ARACELIS-7 AMB Questionnaire ARACELIS-7 Date ARACELIS - 7 assessed: 04/28/25 Feeling nervous, anxious, or on edge: 3 = Nearly every day Not being able to stop or control worryin = Nearly every day Worrying too much about different things: 3 = Nearly every day Trouble relaxin = Nearly every day Being so restless that it is hard to sit still: 3 = Nearly every day Becoming easily annoyed or irritable: 0 = Not at all Feeling afraid as if something awful might happen: 0 = Not at all Total ARACELIS-7 score (0-4 normal; 5-9 mild; 10-14 moderate; 15-21 severe): 15 Source: Developed by Drs. Inocencio Victor, Itzel Burden, Say Sung and colleagues, with an educational zhane from [employer]. ARACELIS-7 Assessment Billing ARACELIS-7 Assessment Tool: ARACELIS-7 Assessment 05538 (Positive screening. Known condition. We will F-U in 1 month. Nurse navigator referral placed. ) Review of Systems Const Details: Positives besides what was mentioned in HPI are in BOLD - ROS was not completed as the patient was having anxiety attacks. We will do it next visit. Physical exam (Primary Care) Vital Signs: Last Vital Signs Temp 96.8 F 04/28/25 13:43 Pulse 94 04/28/25 13:43 BP 132/68 04/28/25 13:43 Pulse Ox 94 04/28/25 13:43 Oxygen Delivery Method Room Air 04/28/25 13:43 BMI result Body Mass Index 23.7 Tobacco/Smoking Status: Tobacco use Status Tobacco use date assessed 04/28/25 04/28/25 13:50 Patient Tobacco Use Status Current everyday Tobacco 04/28/25 13:48 Tobacco use type Cigarette 04/28/25 13:48 e-Cigarette/Vaping Use Never Used 04/28/25 13:48 PHQ-9: PHQ-9 Score PHQ-9: Total score 24 04/28/25 15:30 Depression Screening Interpretation: Positive Depression Screening Follow-up: In treatment (On Buspar. ) and Follow-up Visit Requested (Will F-U in 1 month. ) Thrive Assessment: Date of Thrive Assessment Date Thrive assessed 04/23/25 04/28/25 13:40 Currently or been in a relationship where the following occur: I choose not to answer Const Other: Pertinent findings are in BOLD GENERAL APPEARANCE NAD, activity normal for age, well developed/ well nourished, no cyanosis, pallor, or diaphoresis. EYES lids/conjunctiva normal. EARS/NOSE/THROAT Mucous membranes moist, nares normal, lips/teeth normal uvula midline without oral pharyngeal erythema, exudate or swelling TMs normal bilaterally. No lymphangitis/lymphedema. HEAD/NECK normocephalic atraumatic, no facial trauma, neck is supple. RESPIRATORY respiratory effort normal, speaks in full sentences, no tripod position, no accessory muscle use. Lungs clear to auscultation without rhonchi, wheezes, rales CARDIAC Regular rate and rhythm, no edema. ABDOMINAL Soft, ND/NT. No evidence of fluid wave. No pulsatile masses on exam, rebound tenderness, Wynn sign or pain over Mcburney's point. MUSCLES/EXTREMITIES No abnormal range of motion, no swelling. SKIN Warm, pink and dry. No rashes, dermatoses, petechiae or lesions. NEUROLOGICAL Speech is clear and appropriate. Normal level of consciousness. Gait and coordination are normal. 5/5 strength in all extremities. PSYCH Tearful during interview. Judgement/competence is appropriate Coding Level of Care Code Est Pt Level 3 (44801) Diagnoses ARACELIS (generalized anxiety disorder) F41.1 Constipation K59.00 Additional Codes ARACELIS-7 Assessment Billing - ARACELIS-7 Assessment Tool: ARACELIS-7 Assessment 28704 ([id number]) PHQ-9 - 72419 - PHQ-9 Billing: Yes ([id number]) Assessment & Plan Assessment & Plan (1) ARACELIS (generalized anxiety disorder): Code(s): F41.1 - Generalized anxiety disorder Category: Medical Plan: Denies active SI and/or HI. Continue Buspar. Advised on lowering MJ use. We will consider switching to SSRI in 1 month if patient continues to be anxious. Hydroxyzine PRN for 10 days. Melatonin at bedtime. (2) Constipation: Code(s): K59.00 - Constipation, unspecified Category: Medical Plan: Patient taking OTC milk of magnesia. Miralax + Senna ordered. Plan During the visit, I discussed with the patient the management of his anxiety and depression, emphasizing the importance of continuing therapy and considering adjustments to his medication regimen. We talked about the potential benefits of hydroxyzine for anxiety and sleep, and I advised him on the use of melatonin as a sleep aid. I also addressed his substance use, particularly marijuana, and suggested reducing its use to potentially alleviate his symptoms. Orders: Referrals Nurse Navigator Referral F41.1 - Generalized anxiety disorder Medications: New hydroxyzine HCl 10 mg PO TID PRN 30 tabs 0RF anxiety 10 days melatonin 5 mg PO .At bedtime PRN 90 caps 3RF insomnia 30 days polyethylene glycol 3350 (Miralax) 17 grams PO DAILY 510 grams 3RF 1 month sennosides (senna) 8.6 mg PO DAILY PRN 30 caps 3RF constipation 1 month
[2025-04-28 13:43] VITALS: BP 132/68; PULSE 94; TEMP 36; O2SAT 94; BMI 23.7
--- OUTSIDE RECORDS SUMMARY | 2025-04-28 18:41 | XMS_ITS | Clinical Summary ---
Author Organization [employer] Address [address] [place] [address] Care Team Providers Care Screw Machine Hand Name Role Phone Unavailable Primary Care Provider [...] X-Ray: Bitewings 01/18/2024 01/17/20 23, 12/16/2021, 11/26/2021 Dental Prophylaxis 10/15/2024 04/16/2024 Dental X-Ray: Full Mouth 12/17/2024 12/16/2021 COVID-19 Vaccine (3 - season) 2025 07/01/2021, 11/10/2020 Influenza Vaccine (#1) 2025 , 05/27/2020, 04/30/2019, [...] Most Recently Relevant to Health Maintenance Insurance [facility] MEDICAID STAND ADULT [place] PAZ [id number]
== END 2025-04-28 14:22 | disposition home or self-care (01) ==
LOC: HO.HMCH 13:28
PROVIDERS: PCP Physician Assistant; Visit Provider Internal Medicine
DX: F41.1 Generalized anxiety disorder (principal); K59.00 Constipation, unspecified

== ENCOUNTER → 2025-04-28 13:27 | Outpatient (BNVA) | payer OTHER, SELFPAY | PROVIDERS: PCP Physician Assistant; Visit Provider Internal Medicine | DX: F41.1 Generalized anxiety disorder (principal); K59.00 Constipation, unspecified; Z13.31 Encounter for screening for depression; Z13.39 Encounter for screening examination for other mental health and behavioral disorders | CPT/HCPCS: 96127; 99212 ==

== ENCOUNTER 2025-04-30 15:06 | Outpatient (AMB) | payer OTHER, SELFPAY ==
--- NOTE | 2025-04-30 15:09 | MHC.PC.OV ---
Vital Signs 04/30/25 15:10 Height 5 ft Weight 125 lb 6 oz BMI 24.5 BP 110/70 Blood Pressure Location Lt brachial Position Sitting Pulse 72 Pulse Source Pulse Oximeter Temp 97.3 F Temp Source Temporal Artery Scan Pulse Oximetry (%) 96 Oxygen Delivery Method Room Air Intake Visit Reasons: PE Intake Note: Patient is here today for a physical. Heavy Equipment Sales Manager Required: No Tax Accounting Assistant: Not Required per policy Accompanied by: Self / Same As Patient Allergies sertraline Adverse Reaction (Intermediate, Verified 04/30/25 15:34) inadequate response Medication List - Last Reconciled 04/30/25 by Daniel Pulido PA-C amlodipine 10 mg PO DAILY blood pressure monitor (Blood Pressure Kit) As directed buspirone 5 mg PO BID 30 days gabapentin 800 mg PO BID 90 days hydroxyzine HCl 10 mg PO TID PRN 10 days melatonin 5 mg PO .At bedtime PRN 30 days methadone 56 mg PO DAILY methocarbamol 1,000 mg (2 x 500 mg) PO Q8H polyethylene glycol 3350 (Miralax) 17 grams PO DAILY 1 month sennosides (senna) 8.6 mg PO DAILY PRN 1 month Tobacco use date assessed: 04/28/25 Dental Screening Dental Screen Date: 12/17/24 HPI PE HPI Details Patient is a 59-year-old male here today for routine annual physical ?has a past medical history significant for generalized anxiety disorder, hep C, opiate dependence,? chronic lumbar spine pain. ? .. Hypertension: Blood pressure acceptable today in office.. Patient continues on amlodipine 10 mg with good effect on his blood pressure . Tobacco dependency: Continues to smoke half pack of cigarettes per day. Not interested in quitting at this time. .. opiate dependence: Down to 56 mg daily. Continues on methadone through a local methadone clinic in his trying to slowly wean his methadone dose. . He does report labs in from time to time depending his mental health. ? . ? Anxiety: The patient reports experiencing an anxiety attack over the weekend, characterized by difficulty breathing and chest pain. He attributes the anxiety to feelings of isolation and dissatisfaction with his current living environment, considering a move back to [place] for a more stimulating atmosphere. Colorectal cancer screening: Has done Cologuard in 2022 which was negative repeat 3 years Vaccines: Up-to-date with COVID vaccine, pneumonia vaccine, tetanus vaccine, Considering his flu vaccine though declines today Laboratory Tests 03/03/22 03/25/25 03/25/25 08:12 08:28 08:33 RBC 4.42 L Hgb 12.6 L Fasting Glucose 101 H Cholesterol 159 LDL Cholesterol, C alc 100 PSA Screen 0.51 Urine Microalbumin 5.0 [facility] Medical History Primary insomnia Uncomplicated opioid dependence Anxiety Epidermal cyst of neck Surgical History History of removal of cyst Family History Father Prostate cancer Stroke Mother Alzheimers disease Mental health disorder Sister Dementia in Alzheimer's disease Mental health disorder Sister Breast cancer Social History (Updated 04/30/25 @ 15:34 by Daniel Pulido PA-C) Housing: Apartment Alcohol intake: former Patient Tobacco Use Status: Current everyday Tobacco user Tobacco use type: Cigarette Cigarette Packs Per Day: 0.5 Cigarettes Per Day: 10 e-Cigarette/Vaping Use: Never Used Second Hand Smoke Exposure: Yes Substance Use Type: Heroin and Marijuana service: No Current occupational status: unemployed Cognitive needs: No Hearing needs: No Vision needs: Yes Questionnaire Thrive Questionnaire Date Thrive assessed: 04/23/25 I am a: Patient Within the past 12 months, did the food you bought not last and you didn't have the money to get more?: Never true Within the past 12 months, did you worry whether your food would run out before you got money to buy more?: Never true Do you have trouble paying for medicines?: I choose not to answer this question Do you have trouble getting transportation to medical appointments?: No Do you have trouble paying your heating and electricity bill?: No Do you have trouble taking care of your child, family member or friend?: I choose not to answer this question Do you have trouble with day-to-day activities such as bathing, preparing meals, shopping, managing finances, etc.?: No Are you currently unemployed and looking for a job?: No Are you interested in more education?: No Please select the resources that you would like help with: None Currently or been in a relationship where the following occur: I choose not to answer THRIVE Score: 0 AUDIT C Alcohol Use Questionnaire (AUDIT-C) 1. How often do you have a drink containing alcohol?: Never 3. How often do you have six or more drinks on one occasion?: Never Total Score: 0 ARACELIS-7 AMB Questionnaire ARACELIS-7 Date ARACELIS - 7 assessed: 04/28/25 Feeling nervous, anxious, or on edge: 3 = Nearly every day Worrying too much about different things: 3 = Nearly every day Trouble relaxin = Nearly every day Being so restless that it is hard to sit still: 3 = Nearly every day Becoming easily annoyed or irritable: 3 = Nearly every day Feeling afraid as if something awful might happen: 0 = Not at all Source: Developed by Drs. Inocencio Victor, Itzel Burden, Say Sung and colleagues, with an educational zhane from [employer]. Review of Systems Const Denies body aches, Denies chills, Denies excessive sweating, Denies fatigue, Denies fever(s) and Denies headache(s) Eyes Denies blurry vision ENT Denies dysphagia, Denies vertigo, Denies dizziness, Denies headache(s), Denies hearing loss and Denies tinnitus Card Denies chest pain, Denies chest pain with activity, Denies syncope, Denies irregular heart rhythm and Denies dyspnea Resp Denies chest congestion, Denies cough, Denies hemoptysis, Denies dyspnea and Denies wheezing GI Denies abdominal pain, Denies melena, Denies hematochezia, Denies coffee ground emesis, Denies dysphagia, Denies diarrhea, Denies nausea and Denies vomiting Denies difficulty urinating, Denies dysuria, Denies urinary frequency, Denies urinary hesitancy and Denies urinary urgency Musc Denies arthralgias, Denies limited range of motion, Denies muscle cramps and Denies muscle weakness Skin/Breast Denies rash and Denies skin ulcer Neuro Denies Abnormal speech present, Denies confusion, Denies vertigo, Denies dizziness, Denies syncope, Denies headache(s), Denies memory loss and Denies seizure-like activity Psych Denies anxiety, Denies confusion, Denies depression, Denies memory loss, Denies panic attacks and Denies paranoia Endo Denies excessive sweating, Denies fatigue, Denies flushing, Denies polydipsia and Denies polyuria Aller/Immun Denies wheezing Physical exam (Primary Care) Vital Signs: Last Vital Signs Temp 97.3 F 04/30/25 15:10 Pulse 72 04/30/25 15:10 BP 110/70 04/30/25 15:10 Pulse Ox 96 04/30/25 15:10 Oxygen Delivery Method Room Air 04/30/25 15:10 BMI result Body Mass Index 24.5 Tobacco/Smoking Status: Tobacco use Status Tobacco use date assessed 04/28/25 04/30/25 15:10 Patient Tobacco Use Status Current everyday Tobacco 04/30/25 15:10 Tobacco use type Cigarette 04/30/25 15:10 e-Cigarette/Vaping Use Never Used 04/30/25 15:10 Are you ready to quit: No Tobacco cessation counseling provided: Yes Items discussed: Nicotine replacement Relapse Prevention: discussed the importance of a supportive environment, discussed negative mood or depression after quitting, weight gain after smoking is common and discussed dietary, exercise and/or lifestyle changes Number of minutes spent counselin CPT code: 90534 - 4-10 Minutes Thrive Assessment: Date of Thrive Assessment Date Thrive assessed 04/23/25 04/30/25 15:10 Currently or been in a relationship where the following occur: I choose not to answer Const General: cooperative, comfortable, no acute distress, alert and awake; No confusion Orientation/consciousness: oriented to person, oriented to place, patient oriented x3 and No confusion HENMT Head: Yes normocephalic Ears: external ears normal and TM's normal bilaterally Face and sinus: No sinus tenderness Mouth: Normal oral and palatal mucosa present and tongue normal Teeth and gingiva: dentition normal and gingiva normal Throat: Yes posterior oropharynx normal, Yes tonsils normal and Yes uvula midline Eyes Conjunctivae: conjunctivae normal Sclerae: sclerae normal Pupils: Equal, round and reactive pupils present EOM: EOMs intact bilaterally Direct Ophthalmoscopy: No no photophobia Neck Neck: Yes no lymphadenopathy, No tender and Yes no JVD Thyroid: Thyroid normal Carotids: no bruits Chest Chest palpation & inspection: no tenderness Resp Effort & Inspection: normal respiratory effort, no audible wheezes, not labored and no stridor Auscultation: no crackles, no rales, no rhonchi and no wheezes Cardio Jugular venous distension: no JVD Rate: regular rate, not bradycardic and not tachycardic Rhythm: regular rhythm Bruits: no carotid bruits Peripheral pulses: Peripheral pulses 2+ throughout GI Inspection: Yes normal to inspection, No abdominal wall ecchymosis and No visible herniation Palpation (GI): Soft to palpation, nontender, no guarding, not rigid and No hepatosplenomegaly present Auscultation: normoactive bowel sounds General: Yes no CVA tenderness Back/Spine/Pelvis Back: no CVA tenderness and No back tenderness Cervical Spine: cervical ROM normal Thoracic/Lumbar Spine: thoracic and lumbar spine normal to inspection, straight leg raise negative bilaterally, No thoraco-lumbar ROM limited and No lumbar spinal tenderness Skin Lesions: no lesions Rashes: no rashes Wounds: no wounds Neuro General: oriented to person, oriented to place, patient oriented x3, CN's II-XI intact bilaterally and No confusion Cranial nerves: Yes Equal, round and reactive pupils present and Yes Normal accommodation reflex present Cognition (Neuro): normal cognition Speech: No Abnormal speech present Gait exam (Neuro): Normal gait present Motor exam (neuro): 5/5 motor strength present throughout Extrem Right upper extremity: full ROM; no cyanosis Left upper extremity: full ROM; no cyanosis Right lower extremity: no edema Left lower extremity: no edema Psych Appearance: grossly normal Mental Status: mental status grossly normal Affect: normal affect Attitude: cooperative Thought process: Normal thought process present Coding Level of Care Code Est Pt Prev Care 40-64y(86360) Diagnoses Annual physical exam Z00.00 ARACELIS (generalized anxiety disorder) F41.1 Uncomplicated opioid dependence F11.20 Substance use status: uncomplicated Tobacco dependence F17.200 Essential hypertension I10 Additional Codes Vital Signs *Quality* - CPT code: 45641 - 4-10 Minutes ([id number]) Assessment & Plan Assessment & Plan (1) Annual physical exam: Code(s): Z00.00 - Encounter for general adult medical examination without abnormal findings Category: Medical Plan: as per HPI (2) ARACELIS (generalized anxiety disorder): Code(s): F41.1 - Generalized anxiety disorder Category: Medical Plan: Patient has been having elevated anxiety as of late and attributes this to feeling about a bit isolated here in [place]. He continues with hydroxyzine and BuSpar which has been somewhat effective for his anxiety. He is not interested in really in seeing a mental health therapist at this time. (3) Opiate dependence: Code(s): F11.20 - Opioid dependence, uncomplicated Category: Medical Qualifiers: Substance use status: uncomplicated Qualified Code(s): F11.20 - Opioid dependence, uncomplicated Plan: Patient continues to follow methadone clinic in his slowly weaning down his methadone dose. He is currently on 56 mg methadone (4) Tobacco dependence: Code(s): F17.200 - Nicotine dependence, unspecified, uncomplicated Category: Medical Plan: Patient does understand he needs to quit smoking though has no motivation to quit smoking at this time. Have offered nicotine replacement to him though he declines. (5) Essential hypertension: Code(s): I10 - Essential (primary) hypertension Category: Medical Plan: Patient's blood pressure acceptable today in office. Will continue his current dose of amlodipine 10 mg with goal blood pressure to remain below 140/90 Orders: Orders Microalbumin, Random (w Creat) Today I10 - Essential (primary) hypertension Comprehensive [place]. Panel Fast Today I10 - Essential (primary) hypertension Prostate Specific Antigen Scr Today I10 - Essential (primary) hypertension, Z12.5 - Encounter for screening for malignant neoplasm of prostate Complete Blood Count no Diff Today I10 - Essential (primary) hypertension
[2025-04-30 15:10] VITALS: BP 110/70; PULSE 72; TEMP 36.3; O2SAT 96; BMI 24.5
--- OUTSIDE RECORDS SUMMARY | 2025-04-30 18:40 | XMS_ITS | Clinical Summary ---
Author Organization [employer] Address [address] [place] [address] Care Team Providers Care Core Driller Helper Name Role Phone Unavailable Primary Care Provider [...] Most Recently Relevant to Health Maintenance Insurance [facility] MEDICAID STAND ADULT [place] [id number]
== END 2025-04-30 15:47 | disposition home or self-care (01) ==
LOC: HO.HMCH 15:07
PROVIDERS: PCP Physician Assistant; Visit Provider Physician Assistant
DX: Z00.00 Encounter for general adult medical examination without abnormal findings (principal); F41.1 Generalized anxiety disorder; F11.20 Opioid dependence, uncomplicated; F17.200 Nicotine dependence, unspecified, uncomplicated; I10 Essential (primary) hypertension

== ENCOUNTER → 2025-04-30 15:06 | Outpatient (BNVA) | payer OTHER, SELFPAY | PROVIDERS: PCP Physician Assistant; Visit Provider Physician Assistant | DX: Z00.00 Encounter for general adult medical examination without abnormal findings (principal); F41.1 Generalized anxiety disorder; I10 Essential (primary) hypertension; F17.210 Nicotine dependence, cigarettes, uncomplicated; F11.20 Opioid dependence, uncomplicated | CPT/HCPCS: 99396 ==